=== PATIENT | male | born 1975 | race Caucasian/White ===

== ENCOUNTER 2020-03-29 17:15 | Inpatient (IN) | payer MEDICARE, MEDICAID, SELFPAY ==
[2020-03-29 17:17] VITALS: PULSE 47; RESP 17; O2SAT 100; BMI 20.7
--- NOTE | 2020-03-29 17:49 | ECG_ITS ---
Test Reason : BRADYCARDIA Blood Pressure : / mmHG Vent. Rate : 050 BPM Atrial Rate : 050 BPM P-R Int : 214 ms QRS Dur : 122 ms QT Int : 574 ms P-R-T Axes : 070 101 028 degrees QTc Int : 523 ms Sinus bradycardia with 1st degree A-V block with Premature atrial complexes in a pattern of bigeminy Rightward axis Non-specific intra-ventricular conduction delay ST elevation, consider early repolarization, pericarditis, or injury Abnormal ECG No significant changes seen Referred By: Florencia Nielson Electronically Signed By:JACK BELL MD
--- NOTE | 2020-03-29 17:54 | ED_ITS ---
HPI - SOB/Dyspnea General Chief Complaint: Dyspnea Stated Complaint: sob Time Seen by Provider: 03/29/20 17:48 History of Present Illness HPI Narrative: Patient is a 44-year-old male with a history of end-stage renal disease currently on dialysis. Gets dialysis on Thursday last dialysis was yesday Thursday. Patient got less than usual dialysis because he has restless legs syndrome came a dialysis machine after 2 hours. Patient is complaining of increasing shortness of breath weakness generalized malaise chest tightness not feeling well questionable coughing. Patient denies any diaphoresis. Denies any abdominal pain. Just feels very malaise. Patient from home. No history of travel. No fever no chills. No other changes in medication. Related Data Home Medications Medication Instructions Recorded Confirmed hydromorphone 2 - 4 mg PO Q6H PRN 03/29/20 03/29/20 labetalol 600 mg PO BID 03/29/20 03/29/20 tramadol 150 mg PO BID PRN 03/29/20 03/29/20 Allergies Allergy/AdvReac Type Severity Reaction Status Date / Time Alupent Allergy Unknown Uncoded 04/14/17 00:00 From Alupent Allergy Unknown HALLUCINATI Uncoded 02/02/20 15:20 ONS Review of Systems Review of Systems: Constitutional: No Weight loss, No Fever, No Chills, No Night Sweats, No Fatigue, No Malaise ENT/Mouth: No Hearing loss, No Ear Pain, No Nasal Congestion, No Sinus Pain, No Hoarseness, No sore throat, No Rhinorrhea, No Swallowing Difficulty Eyes: No Eye Pain, No Swelling, No Redness, No Foreign Body, No Discharge, No Vision Changes Cardiovascular: No Chest Pain, No SOB, No Dyspnea on Exertion, No Orthopnea, No Edema, No Palpitations Respiratory: Positive Cough, No Sputum, No Wheezing, No Smoke Exposure, No Dyspnea Gastrointestinal: No Nausea, No Vomiting, No Diarrhea, No Constipation, No abdominal Pain, No Hematochezia, No Melena Genitourinary: no irregular bleeding, No Dysuria, No Urinary Frequency, No Hematuria, No Urinary Incontinence, No Urgency, No Flank Pain, No Urinary Flow Changes, No Hesitancy Musculoskeletal: No joint pain, No Myalgias, No Joint Swelling Skin: No Skin Lesions, No rash Neuro: No Weakness, No Numbness, No Paresthesias, No Loss of Consciousness, positive Dizziness, No Headache Psych: No Anxiety/Panic, No Depression, No SI/HI/AH/VH, No Social Issues, Heme/Lymph: No Bruising, No Bleeding,No Lymphadenopathy Endocrine: No Polyuria, No Polydipsia, No Temperature Intolerance [facility] Past Medical History Attestation statement: The following information was validated with the patient. Social History Social History Alcohol intake: never Smoking Status: Never smoker Use of substances other than those prescribed or required for medical reasons: No Advance Directives: No Advance Directives Information Provided: Yes Physical Exam Vital Signs: Vital Signs: Last Vital Signs Temp 97.7 F 03/29/20 19:38 Pulse 64 03/29/20 19:38 Resp 20 03/29/20 19:38 BP 156/94 H 03/29/20 19:38 Pulse Ox 90 L 03/29/20 19:38 Body Mass Index 20.7 Appearance: Alert. Oriented X3. No acute distress. Eyes: Pupils equal, round and reactive to light. ENT: Pharynx normal. Neck: Normal inspection. Neck supple. No lymph nodes noted. No crepitus CVS: Normal heart rate and rhythm. Pulses normal. Normal S1 and S2 Respiratory: No respiratory distress. Breath sounds normal. No Wheezing. No rales Abdomen: Soft and nontender. No rigidity. No distention. good BS x4 Skin: Skin warm and dry. Normal skin color. Normal skin turgor. Extremities: No lower extremity edema. Neurovascular intact to all extremities. No Lacerations. No Rash. Positive thrill noted at the shunts. Neuro: Oriented X 3. No motor deficit. No sensory deficit. Moving all extermities. No slurred speech MDM - SOB/Dyspnea MDM Narrative Medical decision making narrative: Patient has generalized malaise weakness. Chest tightness. Did not get his full dialysis yesterday. Patient's potassium today is 6.7. With significant peaked T-waves noted. Patient given calcium gluconate, insulin, glucose. Kayexalate was also given. Placed on a monitor with heart rate improving now in the 60s. Case discussed with Nephrology. Will come in and get the patient dialyzed. Case to be discussed with the hospitalist service for admission. Patient's troponin is in the 50s patient's EKG is unchanged from last check most likely elevated due to patient's end-stage renal status. Pain is atypical for ACS. Patient to be admitted Lab Data Result diagrams: 03/29/20 17:57 03/29/20 17:57 Labs: Lab Results 03/29/20 03/29/20 03/29/20 Range/Units 17:57 17:57 17:57 WBC 5.5 (4.8-10.8) X10*3/uL RBC 3.46 L (4.60-5.80) X10*6/uL Hgb 10.7 L (14.0-18.0) g/dl Hct 33.9 L (42-52) % MCV 98.0 (80-98) fL MCH 30.9 (27.0-33.0) pg MCHC 31.6 (31.0-36.0) g/dl RDW 19.0 H (11.0-16.0) % Plt Count 187 (160-400) X10*3/uL MPV 10.6 (9.4-12.4) fL Absolute Nucleated RBC 0.000 (0.0-0.012) X10*3/uL Nucleated RBC % (auto) 0.0 (0.0-0.2) /100WBC APTT 36.7 (24.1-38.0) SEC VBG pH (7.32-7.43) Sodium 137 (135-145) mmol/L Potassium 6.7 H* (3.3-5.1) mmol/l Chloride 93 L (96-108) mmol/L Carbon Dioxide 25 (22-29) mmol/L Anion Gap 26 H (12-20) BUN 85 H* (9-16) mg/dL Creatinine 6.17 H* (0.5-1.4) mg/dL Estim Creat Clear Calc 14.3 Estimated GFR 10 Random Glucose 56 L* (60-115) mg/dL Calcium 8.2 L (8.4-10.2) mg/dL Phosphorus 6.9 H (2.7-4.5) mg/dL Magnesium 2.5 (1.6-2.6) mg/dL Troponin I High Sens (<3.5-35.0) ng/L Acetone, Qual Negative (Negative) Coronavirus (PCR) (Negative) Influenza Type A (PCR) (Negative) Influenza Type B (PCR) (Negative) RSV RNA Qual (PCR) (Negative) 03/29/20 03/29/20 03/29/20 Range/Units 17:57 17:57 17:57 WBC (4.8-10.8) X10*3/uL RBC (4.60-5.80) X10*6/uL Hgb (14.0-18.0) g/dl Hct (42-52) % MCV (80-98) fL MCH (27.0-33.0) pg MCHC (31.0-36.0) g/dl RDW (11.0-16.0) % Plt Count (160-400) X10*3/uL MPV (9.4-12.4) fL Absolute Nucleated RBC (0.0-0.012) X10*3/uL Nucleated RBC % (auto) (0.0-0.2) /100WBC APTT (24.1-38.0) SEC VBG pH 7.38 (7.32-7.43) Sodium (135-145) mmol/L Potassium (3.3-5.1) mmol/l Chloride (96-108) mmol/L Carbon Dioxide (22-29) mmol/L Anion Gap (12-20) BUN (9-16) mg/dL Creatinine (0.5-1.4) mg/dL Estim Creat Clear Calc Estimated GFR Random Glucose (60-115) mg/dL Calcium (8.4-10.2) mg/dL Phosphorus (2.7-4.5) mg/dL Magnesium (1.6-2.6) mg/dL Troponin I High Sens 57.2 H (<3.5-35.0) ng/L Acetone, Qual (Negative) Coronavirus (PCR) NEGATIVE (Negative) Influenza Type A (PCR) NEGATIVE (Negative) Influenza Type B (PCR) NEGATIVE (Negative) RSV RNA Qual (PCR) NEGATIVE (Negative) ECG Data Attestation: I personally reviewed and interpreted this ECG as follows: ECG interpretation date: 03/29/20 Prior ECG tracings: not available for review Interpretation: Initial EKG showed a sinus pattern heart rate is 50 with significant T-wave that is T in V4 5 and 6. There is no old EKG that can be compared Repeat EKG done approximately 20 minutes later shows a sinus bradycardia heart rate was [address] within normal limits there is profound T-wave the P again over V4 5 and 6. Critical Care Time Critical Care Time Total Critical Care Time: 40 Attestation: I have personally provided 40 minutes of critical care time exclusive of time spent on separately billable procedures. Time includes review of lab data, radiology results, discussion with consultants, and monitoring for potential decompensation. Interventions were performed as documented above Discharge Plan Discharge Clinical Impression: Acute hyperkalemia Patient Disposition: Admitted As Inpatient
[2020-03-29] MEDS: Insulin Regular, Human 100 UNIT/ML 3 ML VIAL IVPUSH (18:02)
[2020-03-29] MEDS: Calcium Gluconate/NaCl,Iso-Osm 1 GM/50 ML PLAST..BAG IV (18:03)
[2020-03-29 18:23] LABS: pH VBG 7.38 (7.32-7.43)
--- NOTE | 2020-03-29 18:25 | XR_ITS ---
EXAMINATION: XR CHEST CLINICAL INFORMATION: Shortness of breath COMPARISON: Chest x-ray 11/02/2019. CT chest 07/09/2017 TECHNIQUE: Frontal portable view of the chest was obtained. 6:19 PM FINDINGS: There is persistent chronic mild increased hazy and interstitial airspace opacities similar prior studies. Increasing airspace opacity in the left midlung compared to prior exam but without dense consolidation or air bronchograms. There is no pleural effusion. Cardiac and mediastinal contours are unchanged. No significant central pulmonary vascular congestion. XR/XR chest 1V IMPRESSION: Persistent chronic mild increased hazy and interstitial airspace opacities similar prior studies. Worsening airspace opacity in the left midlung.
[2020-03-29 18:26] LABS: Partial Thromboplastin Time 36.7 SEC (24.1-38.0)
[2020-03-29 18:27] LABS: Hematocrit 33.9 % (42-52); Hemoglobin 10.7 g/dl (14.0-18.0); Mean Corpuscular HGB Conc 31.6 g/dl (31.0-36.0); Mean Corpuscular Hemoglobin 30.9 pg (27.0-33.0); Mean Platelet Volume 10.6 fL (9.4-12.4); Platelet Count 187 X10*3/uL (160-400); Red Blood Count 3.46 X10*6/uL (4.60-5.80); White Blood Count 5.5 X10*3/uL (4.8-10.8)
[2020-03-29 18:49] LABS: Calcium 8.2 mg/dL (8.4-10.2); Magnesium 2.5 mg/dL (1.6-2.6); Phosphorus 6.9 mg/dL (2.7-4.5)
[2020-03-29 18:50] LABS: Troponin-I High Sensitivity 57.2 ng/L (<3.5-35.0)
[2020-03-29 18:53] LABS: Influenza A PCR NEGATIVE (Negative); Influenza B PCR NEGATIVE (Negative); Resp Syncy Virus RNA Qual PCR NEGATIVE (Negative); SARS COV2 PCR INHOUSE NEGATIVE (Negative)
[2020-03-29 18:59] LABS: Anion Gap 26 (12-20); Blood Urea Nitrogen 85 mg/dL (9-16); Carbon Dioxide 25 mmol/L (22-29); Chloride 93 mmol/L (96-108); Creatinine Clr Calc Pharmacy 14.3; Estimated Glomerular Filt Rate 10; Glucose Random 56 mg/dL (60-115); Potassium 6.7 mmol/l (3.3-5.1); Sodium 137 mmol/L (135-145)
[2020-03-29 19:19] LABS: Acetone, serum QL Negative (Negative)
[2020-03-29 19:21] VITALS: BP 157/93; PULSE 64; RESP 18; TEMP 36.4; O2SAT 95
[2020-03-29 19:38] VITALS: BP 156/94; PULSE 64; RESP 20; TEMP 36.5; O2SAT 90
[2020-03-29 20:00] VITALS: BP 161/105; PULSE 65; RESP 18; TEMP 36.6; O2SAT 94
[2020-03-29 20:22] LABS: Glucose, Whole Blood < 10 mg/dL (60-115)
[2020-03-29] MEDS: Dextrose 50 % 25 GM/50 ML SYRINGE IVPUSH (20:23)
[2020-03-29 20:25] LABS: Glucose, Whole Blood 81 mg/dL (60-115)
--- NOTE | 2020-03-29 20:36 | PC.NURSE ---
THIS RN UNABLE TO COLLECT URINE SPEC PT DOES NOT PRODUCE URINE. PT'S CRITICAL GLUCOSE REPORTED FROM LAB, PT GIVEN APPLE JUICE AT TIME OF RESULTS. POC THEN CHECKED AGAIN WITH HOSPITALIST AT BEDSIDE, CRITICAL LOW <10 READING, PT AWAKE/ALERT. PT GIVEN 1 AMP D50 PER THOMAS ORDER, PT GIVEN MORE APPLE JUICE, SANDWICH, GINGERALE. IMMEDIATE RECEHCK OF POC 86, PENDING 2ND REPEAT AT 20 MIN.
[2020-03-29 20:49] LABS: Glucose, Whole Blood 71 mg/dL (60-115)
--- NOTE | 2020-03-29 21:09 | PM.IMHP ---
History of Present Illness Date of Service: 03/29/20 Chief Complaint: Not feeling well this is a 44-year-old male with past medical history of end-stage renal disease on dialysis MWF, restless leg syndrome, hypertension, CAD, status post failed renal transplant, anemia of chronic disease who presents to the hospital with complaints of generalized weakness,dizziness, malaise, overall not feeling well. patient had dialysis yesterday but only did about 2 hours due to his restless leg syndrome. He comes in today complaining of feeling unwell, and generalized malaise. When I saw the patient, he was waxing and waning, was not able to stay up for extended period of time to answer my questions. He told me that he usually gets like this when he is hypoglycemic. On review of his labs, sugar was noted to be 56, a repeat sugar was done while I was there, which read low . patient was given juice, D50, and is feeling better. He denies having any CP, SOB, N/V. no diarrhea constipation. No urinary symptoms and no lower extremity edema. No headache or change in vision. on arrival to the ED hemodynamically stable with no significant abnormal vitals except for a blood pressure of 156/94. labs are significant for potassium 617, BUN of 85, creatinine of 6.17, troponin of 5-7.2 ( drawn around the same level in January) negative COVID EKG demonstrating peaked T-wave past medical history: ESRD on dialysis, restless leg syndrome, hypertension, CAD, history of renal transplant, anemia of chronic past surgical history: Denies family history: Denies social history: Comes from home, denies tobacco alcohol or illicit drugs [facility] Medical History (Updated 03/29/20 @ 21:56 by Samanta Ray MD) CAD (coronary artery disease) ESRD on dialysis Hypertension Social History Alcohol intake: never Smoking Status: Never smoker Use of substances other than those prescribed or required for medical reasons: No Advance Directives: No Advance Directives Information Provided: Yes Meds Allergies Allergy/AdvReac Type Severity Reaction Status Date / Time Alupent Allergy Unknown Uncoded 04/14/17 00:00 From Alupent Allergy Unknown HALLUCINATI Uncoded 02/02/20 15:20 ONS Home Medications Medication Instructions Recorded Confirmed Type hydromorphone 2 - 4 mg PO Q6H PRN 03/29/20 03/29/20 History labetalol 600 mg PO BID 03/29/20 03/29/20 History tramadol 150 mg PO BID PRN 03/29/20 03/29/20 History Physical Exam Vital Signs and Narrative: Vital Signs: Last Vital Signs Temp 97.7 F 03/29/20 19:38 Pulse 64 03/29/20 19:38 Resp 20 03/29/20 19:38 BP 156/94 H 03/29/20 19:38 Pulse Ox 90 L 03/29/20 19:38 Body Mass Index 20.7 Const: Other: Initially lethargic, waxing and waning, unable to stay up long enough to answer my questions but more awake, alert, conversing after receiving D50, as well as being on D5 General: cooperative Orientation/consciousness: patient oriented x3 Eyes: General: appearance normal, both eyes and all related structures Pupils: Equal, round and reactive pupils present Resp: Effort & Inspection: normal respiratory effort Auscultation: clear to auscultation bilaterally Cardio: Rate: regular rate Rhythm: regular rhythm GI: Palpation (GI): Soft to palpation Auscultation: normal bowel sounds Skin: General skin exam: no rashes or lesions noted Neuro: General: patient oriented x3 Cranial nerves: Yes Equal, round and reactive pupils present Cognition (Neuro): normal cognition Extrem: General: Yes normal to inspection and Yes no pedal edema Results Labs CBC and Chem 7: 03/29/20 17:57 03/29/20 17:57 Labs: Laboratory Results - last 24 hr 03/29/20 03/29/20 03/29/20 17:57 17:57 17:57 MCV 98.0 MCH 30.9 MCHC 31.6 RDW 19.0 H Plt Count 187 MPV 10.6 Absolute Nucleated RBC 0.000 Nucleated RBC % (auto) 0.0 APTT 36.7 VBG pH Anion Gap 26 H Estim Creat Clear Calc 14.3 Estimated GFR 10 POC Glucose Random Glucose 56 L* Calcium 8.2 L Phosphorus 6.9 H Magnesium 2.5 Troponin I High Sens Acetone, Qual Negative Coronavirus (PCR) Influenza Type A (PCR) Influenza Type B (PCR) RSV RNA Qual (PCR) 03/29/20 03/29/20 03/29/20 17:57 17:57 17:57 MCV MCH MCHC RDW Plt Count MPV Absolute Nucleated RBC Nucleated RBC % (auto) APTT VBG pH 7.38 Anion Gap Estim Creat Clear Calc Estimated GFR POC Glucose Random Glucose Calcium Phosphorus Magnesium Troponin I High Sens 57.2 H Acetone, Qual Coronavirus (PCR) NEGATIVE Influenza Type A (PCR) NEGATIVE Influenza Type B (PCR) NEGATIVE RSV RNA Qual (PCR) NEGATIVE 03/29/20 03/29/20 03/29/20 20:15 20:22 20:43 MCV MCH MCHC RDW Plt Count MPV Absolute Nucleated RBC Nucleated RBC % (auto) APTT VBG pH Anion Gap Estim Creat Clear Calc Estimated GFR POC Glucose < 10 L* 81 71 Random Glucose Calcium Phosphorus Magnesium Troponin I High Sens Acetone, Qual Coronavirus (PCR) Influenza Type A (PCR) Influenza Type B (PCR) RSV RNA Qual (PCR) Imaging Radiologist's Impressions: Impressions Chest X-Ray 03/29/20 18:25 IMPRESSION: Persistent chronic mild increased hazy and interstitial airspace opacities similar prior studies. Worsening airspace opacity in the left midlung. Assessment and Plan (1) Acute hyperkalemia: Status: Acute (2) Hypoglycemia: Status: Acute (3) ESRD on dialysis: Status: Acute (4) Hypertension: Status: Acute (5) CAD (coronary artery disease): Status: Acute This is a 44-year-old male with past medical history of ESRD on dialysis who presents to the hospital with multiple in complaints of about found to be hypokalemic, and has elevated troponin. # hyperkalemia - most likely secondary to incomplete dialysis - has EKG changes of peaked T-waves with heart rate dropping to the 40s at 1 point in the ED Plan: - Received calcium gluconate, insulin, and Kayexalate in the ED - will be undergoing dialysis tonight - will follow BMP following dialysis # hypoglycemia - unclear etiology - patient has no history of diabetes, but repeats multiple episodes similar to this in the past plan: - Will place on D50 - POC q.1 hour - may need workup of adrenal insufficiency given no other etiology for his hypoglycemia # elevated troponin - initial high sensitivity troponin of 56, around the same level from about 2 months ago - this may be secondary to ESRD versus acute coronary syndrome given his history of coronary artery disease - no EKGs changes suggestive of ACS Plan: - Will repeat troponin, if delta more than 50%, will consult Cardiology and follow recommendation - continue labetalol # hypertension - elevated - continue labetalol # coronary artery disease - has chest pain, has chronic elevated troponin plan: - Continue labetalol - repeat troponin # chronic back pain - continue hydromorphone DVT prophylaxis: Heparin subcu
[2020-03-29] MEDS: Dextrose 5 % and 0.9 % NaCl 1,000 ML 100 ML IVCONT (21:17)
[2020-03-29] MEDS: Sodium Polystyrene Sulfon/Sorb 15 GM/60 ML ORAL.SUSP 60 GM PO (21:18)
[2020-03-29 22:00] VITALS: BP 142/85; PULSE 57; RESP 18; TEMP 36.6; O2SAT 95
[2020-03-29 22:21] LABS: Glucose, Whole Blood 132 mg/dL (60-115)
[2020-03-29] MEDS: diphenhydrAMINE HCL 50 MG/ML VIAL 12.5 MG IVPUSH (23:08)
[2020-03-29 23:11] LABS: Anion Gap 27 (12-20); Blood Urea Nitrogen 95 mg/dL (9-16); Calcium 8.7 mg/dL (8.4-10.2); Carbon Dioxide 24 mmol/L (22-29); Chloride 90 mmol/L (96-108); Estimated Glomerular Filt Rate 9; Glucose Random 137 mg/dL (60-115); Potassium 6.2 mmol/l (3.3-5.1); Sodium 135 mmol/L (135-145)
[2020-03-29 23:12] LABS: Troponin-I High Sensitivity 48.3 ng/L (<3.5-35.0)
[2020-03-29] MEDS: 0.9 % Sodium Chloride Flush 3 ML SYRINGE IVFLUSH (23:19)
[2020-03-29 23:41] LABS: Glucose, Whole Blood 98 mg/dL (60-115)
[2020-03-30] VITALS (7 sets, daily range): BP systolic 179–189; BP diastolic 83–105; PULSE 65–68; RESP 18; TEMP 36.4–36.6; O2SAT 97–99
--- NOTE | 2020-03-30 | CT_ITS ---
EXAMINATION: CT CHEST WITHOUT CONTRAST CLINICAL INFORMATION: Interstitial infiltrates. COMPARISON: Radiograph 03/29/2020. CT 07/09/2017. TECHNIQUE: Multidetector volumetric CT imaging of the chest was done. Axial MIP volume rendering provided. Sagittal and coronal reformatted images were obtained. This CT examination was performed using dose optimization techniques as appropriate, variously including the following: *Automated exposure control *Adjustment of mA and/or kV according to patient size (this includes techniques or standardized protocols for targeted exams where dose is matched to indication/reason for exam; i.e. extremities or head) *Use of iterative reconstruction technique DLP: 125 mGy-cm FINDINGS: LUNGS: The central airways are patent. There is moderate centrilobular emphysema, greatest in the upper lobes. There is heterogeneous groundglass appearance throughout the lungs, similar to prior. Mild bronchiectasis with bronchial wall thickening noted. There is interstitial thickening seen, greatest in the lower lobes. This is similar to prior. No honeycombing. No dense consolidation. No pneumothorax. Chain suture line along the left lateral lung. MEDIASTINUM: Enlarged heart. No pericardial effusion. Moderate coronary artery calcification. No mediastinal lymphadenopathy. The visualized thyroid gland is unremarkable. PLEURA: There is no pleural effusion. No pleural mass or thickening. AXILLA: No lymphadenopathy. UPPER ABDOMEN: Mild stranding in the upper abdominal mesentery. The [place] kidneys appear atrophic. The liver may be enlarged. OSSEOUS STRUCTURES: No acute or suspicious osseous abnormality. CT/CT chest wo con IMPRESSION: Moderate emphysema. Appearance of chronic interstitial lung disease which is similar to the prior study from 07/09/2017. No honeycombing to suggest UIP pattern. Coronary artery calcifications. Enlarged heart.
--- NOTE | 2020-03-30 | ECG_ITS ---
Test Reason : CHEST PAIN Blood Pressure : / mmHG Vent. Rate : 065 BPM Atrial Rate : 065 BPM P-R Int : 198 ms QRS Dur : 118 ms QT Int : 498 ms P-R-T Axes : 038 088 026 degrees QTc Int : 517 ms Normal sinus rhythm RSR' or QR pattern in V1 suggests right ventricular conduction delay Incomplete right bundle branch block Left atrial enlargement Left ventricular hypertrophy with QRS widening Nonspecific ST abnormality Prolonged QT Abnormal ECG When compared with ECG of 29-MAR-2020 18:05, NC interval has decreased Vent. rate has increased BY 27 BPM Right bundle branch block is no longer Present ST more depressed Inferior leads Referred By: Florencia Nielson Electronically Signed By:JACK BELL MD
[2020-03-30 01:04] LABS: Glucose, Whole Blood 86 mg/dL (60-115)
[2020-03-30] MEDS: traMADoL HCL 50 MG TABLET 150 MG PO ×2 (01:33→09:24)
[2020-03-30] MEDS: HYDROmorphone HCl 2 MG TABLET PO (01:33)
[2020-03-30] MEDS: Heparin Sodium,Porcine 5,000 UNIT/ML VIAL 5000 UNIT SUBCUT ×2 (02:02→09:26)
[2020-03-30] MEDS: Labetalol HCL 200 MG TABLET 600 MG PO ×2 (02:03→09:24)
[2020-03-30 02:35] LABS: Glucose, Whole Blood 103 mg/dL (60-115)
[2020-03-30 03:40] LABS: Glucose, Whole Blood 124 mg/dL (60-115)
[2020-03-30 05:15] LABS: MANUAL DIFF FLAG NO
[2020-03-30 05:17] LABS: Basophils Percent Auto 0.5 % (0-2); Eosinophils Percent Auto 0.5 % (0-4); Hematocrit 34.6 % (42-52); Hemoglobin 11.1 g/dl (14.0-18.0); Imm Gran Abs Auto 0.01 X10*3/uL (0.00-0.03); Imm Gran Pct Auto 0.2 % (0.0-0.4); Lymphocytes Percent Auto 17.7 % (20-40); Mean Corpuscular HGB Conc 32.1 g/dl (31.0-36.0); Mean Corpuscular Hemoglobin 31.4 pg (27.0-33.0); Mean Platelet Volume 10.9 fL (9.4-12.4); Monocytes Absolute Auto 0.5 X10*3/uL (0.1-1.2); Monocytes Percent Auto 8.9 % (2-11); Neutrophils Percent Auto 72.2 % (45-73); Platelet Count 212 X10*3/uL (160-400); Red Blood Count 3.53 X10*6/uL (4.60-5.80); Red Cell Distribution Width 18.6 % (11.0-16.0); White Blood Count 5.6 X10*3/uL (4.8-10.8)
[2020-03-30 05:55] LABS: Anion Gap 24 (12-20); Blood Urea Nitrogen 47 mg/dL (9-16); Calcium 8.9 mg/dL (8.4-10.2); Carbon Dioxide 22 mmol/L (22-29); Chloride 95 mmol/L (96-108); Estimated Glomerular Filt Rate 15; Glucose Random 117 mg/dL (60-115); Potassium 4.5 mmol/l (3.3-5.1); Sodium 136 mmol/L (135-145)
[2020-03-30 06:28] LABS: Glucose, Whole Blood 99 mg/dL (60-115)
[2020-03-30 06:28] LABS: Glucose, Whole Blood 123 mg/dL (60-115)
[2020-03-30 06:28] LABS: Glucose, Whole Blood 93 mg/dL (60-115)
[2020-03-30 07:50] LABS: Glucose, Whole Blood 101 mg/dL (60-115)
--- NOTE | 2020-03-30 09:09 | PM.CNNEP ---
History of Present Illness Reason for Consult Consult date: 03/30/20 Reason for consult: ESRD due for HD Chief Complaint Chief complaint: Hyperkalemia, Dialysis pt, Hypoglycemia History of Present Illness Narrative: Date of Service: 03/30/20 Chief Complaint: Not feeling well this is a 44-year-old male with past medical history of end-stage renal disease on dialysis MWF, restless leg syndrome, hypertension, CAD, status post failed renal transplant, anemia of chronic disease who presents to the hospital with complaints of generalized weakness,dizziness, malaise, overall not feeling well. patient had dialysis yesterday but only did about 2 hours due to his restless leg syndrome. He comes in today complaining of feeling unwell, and generalized malaise. When I saw the patient, he was waxing and waning, was not able to stay up for extended period of time to answer my questions. He told me that he usually gets like this when he is hypoglycemic. On review of his labs, sugar was noted to be 56, a repeat sugar was done while I was there, which read low . patient was given juice, D50, and is feeling better. He denies having any CP, SOB, N/V. no diarrhea constipation. No urinary symptoms and no lower extremity edema. No headache or change in vision. on arrival to the ED hemodynamically stable with no significant abnormal vitals except for a blood pressure of 156/94. labs are significant for potassium 6.7, BUN of 85, creatinine of 6.17, troponin of 5-7.2 ( drawn around the same level in January) negative COVID EKG demonstrating peaked T-wave Patient received urgent HD for hyperkalemia had 2.5 l fluid removed, due for HD today. past medical history: ESRD on dialysis, restless leg syndrome, hypertension, CAD, history of renal transplant, anemia of chronic past surgical history: Denies family history: Denies social history: Comes from home, denies tobacco alcohol or illicit drugs [facility] Medical History (Updated 03/29/20 @ 21:56 by Samanta Ray MD) CAD (coronary artery disease) ESRD on dialysis Hypertension Social History Alcohol intake: never Smoking Status: Never smoker Use of substances other than those prescribed or required for medical reasons: No Advance Directives: No Advance Directives Information Provided: Yes Review of Systems Review of Systems Yes all other systems are reviewed and are negative [facility] Past Medical History Medical History CAD (coronary artery disease) ESRD on dialysis Hypertension Social History Social History Household Members: Family Housing: House Do you presently have visiting nurse or other home services: No Alcohol intake: never Smoking Status: Never smoker Use of substances other than those prescribed or required for medical reasons: No Have you been hit, kicked, punched, or otherwise hurt by someone within the past year? If so, by whom?: No Do you feel safe in your current relationship?: Yes Is there a partner from a previous relationship who is making you feel unsafe now?: No Are you made to feel afraid or neglected: No Advance Directives: No Advance Directives Information Provided: Yes Do you have thoughts of harming others: None Do you have a plan to hurt others: No Plan Recently lost weight without trying: No Meds Allergies Allergy/AdvReac Type Severity Reaction Status Date / Time Alupent Allergy Unknown Uncoded 04/14/17 00:00 From Alupent Allergy Unknown HALLUCINATI Uncoded 02/02/20 15:20 ONS Home Medications Medication Instructions Recorded Confirmed Type hydromorphone 2 - 4 mg PO Q6H PRN 03/29/20 03/29/20 History labetalol 600 mg PO BID 03/29/20 03/29/20 History tramadol 150 mg PO BID PRN 03/29/20 03/29/20 History Physical Exam Vital Signs: Last Vital Signs Temp 97.7 F 03/30/20 07:29 Pulse 67 03/30/20 07:29 Resp 18 03/30/20 07:29 BP 180/93 H 03/30/20 07:29 Pulse Ox 97 03/30/20 07:29 Body Mass Index 20.7 oral moist mucosa lungs clear s1s2 no CELESTE abd soft +BSs ext trace edema LUE +AVF neuro no focal deficit Results Lab Results Result Diagrams: 03/30/20 04:40 03/30/20 05:00 Lab results: Chemistry 03/29/20 03/29/20 03/30/20 17:57 22:26 05:00 Sodium 137 135 136 Potassium 6.7 H* 6.2 H* 4.5 D Carbon Dioxide 25 24 22 BUN 85 H* 95 H* 47 H D Creatinine 6.17 H* 6.79 H* 4.43 H* Calcium 8.2 L 8.7 D 8.9 Phosphorus 6.9 H Hematology 03/29/20 03/30/20 17:57 04:40 WBC 5.5 5.6 Hgb 10.7 L 11.1 L Plt Count 187 212 Assessment and Plan (1) ESRD on dialysis: Problem details: continue HD via AVF today MWF Status: Acute (2) Hypoglycemia: Problem details: being closely monitored. addressed meds with primary medicine team. Status: Acute (3) Hypertension: Problem details: resume outpt meds, continue HD with ultrafiltration/fluid removal. Status: Acute (4) Acute hyperkalemia: Problem details: controlled. Status: Acute plan as above, pt having CT scan today as part of workup, will follow results HD today if Glucose levels stable and HTN controlled can consider DC home, next HD next week thursday. Procedures Abscess I/D Date of Service: 03/30/20
[2020-03-30] MEDS: 0.9 % Sodium Chloride Flush 3 ML SYRINGE IVFLUSH (09:26)
[2020-03-30] MEDS: diphenhydrAMINE HCL 50 MG/ML VIAL 25 MG IVPUSH (09:36)
--- NOTE | 2020-03-30 09:48 | MHC.CM.PN ---
met with pt who reports not having servceis prior to admisison pt confirms going to dialysis thu and luz [facility]
[2020-03-30 10:09] LABS: Anion Gap 22 (12-20); Blood Urea Nitrogen 50 mg/dL (9-16); Calcium 9.2 mg/dL (8.4-10.2); Carbon Dioxide 26 mmol/L (22-29); Chloride 95 mmol/L (96-108); Creatinine Clr Calc Pharmacy 18.2; Estimated Glomerular Filt Rate 13; Glucose Random 87 mg/dL (60-115); Potassium 4.5 mmol/l (3.3-5.1); Sodium 138 mmol/L (135-145)
[2020-03-30 10:11] LABS: Alanine Aminotransferase 27 U/L (0-40); Albumin Level 3.9 g/dL (3.5-5.0); Alkaline Phosphatase 272 U/L (39-117); Aspartate Amino Transferase 33 U/L (5-37); Bilirubin Direct 0.5 mg/dL (0.0-0.5); Bilirubin Total 0.8 mg/dL (0.0-1.0); Total Protein 7.9 g/dL (6.5-8.0)
[2020-03-30 10:31] LABS: TSH reflex Free T4 2.68 mIU/mL (0.32-4.0)
[2020-03-30 10:34] LABS: Procalcitonin 2.82 ng/mL
[2020-03-30 11:23] LABS: Glucose, Whole Blood 74 mg/dL (60-115)
--- NOTE | 2020-03-30 13:33 | HO.PM.IMPN ---
Subjective Subjective Date of Service: 03/30/20 Interval History: underwent HD last night and going again today c/o restless legs. has tried multiple treatments in past including gabapentin + ropinirole; only med that helpds is tramadol undergoing workup for repeat renal transplant denies taking any insulin or oral hypoglycemia has had 1 prior episode of hypoglycemia. both were triggered by not eating for 2 days denies cough or dyspnea denies fever or chills Physical Exam Vital Signs: Vital Signs: Last Vital Signs Temp 97.7 F 03/30/20 07:29 Pulse 67 03/30/20 09:24 Resp 18 03/30/20 07:29 BP 186/105 H 03/30/20 11:08 Pulse Ox 97 03/30/20 07:29 Body Mass Index 20.7 gen: NAD HEENT: sclerae anicteric, moist mucus membranes pulm: clear bilaterally CV: RRR ext: LUE fistula neuro: no focal deficit Objective Data Current Medications Generic Name Dose Route Start Last Admin Trade Name Freq PRN Reason Stop Dose Admin Acetaminophen 650 mg 03/29/20 22:22 Acetaminophen 325 Mg Tablet PO Q6H PRN Pain, Mild (Pain Scale 1-3) Diphenhydramine HCl 12.5 mg 03/29/20 22:36 03/29/20 23:08 Diphenhydramine Hcl 50 Mg/Ml Vial IVPUSH 12.5 mg Q6H PRN Administration Itching Docusate Sodium 100 mg 03/29/20 22:22 Docusate Sodium 100 Mg Capsule PO DAILY PRN Constipation Heparin Sodium (Porcine) 5,000 unit 03/29/20 22:00 03/30/20 09:26 Heparin Sodium,Porcine 5,000 Unit/Ml Vial SUBCUT 5,000 unit Q12H RADHA Administration Hydromorphone HCl 2 - 4 mg 03/29/20 22:22 03/30/20 01:33 Hydromorphone Hcl 2 Mg Tablet PO 2 mg Q6H PRN Administration Pain, Severe Dextrose/Sodium Chloride 1,000 mls @ 100 mls/hr 03/29/20 21:00 03/30/20 09:35 D5ns IVCONT Not Given .Q10H RADHA Labetalol HCl 600 mg 03/29/20 22:22 03/30/20 09:24 Labetalol Hcl 200 Mg Tablet PO 600 mg BID RADHA Administration Protocol Ondansetron HCl 4 mg 03/29/20 22:22 Ondansetron Hcl 4 Mg/2 Ml Vial IVPUSH Q8H PRN Nausea and Vomiting Pharmacy Consult 1 each 03/29/20 19:28 Consult Rx Perform Med Rec MISCELLANE ONCE PRN Consult order Sodium Chloride 3 ml 03/30/20 00:00 03/30/20 09:26 0.9 % Sodium Chloride Flush 3 Ml Syringe IVFLUSH 3 ml QSHIFT RADHA Administration Tramadol HCl 150 mg 03/29/20 22:22 03/30/20 09:24 Tramadol Hcl 50 Mg Tablet PO 150 mg BID PRN Administration Pain, Moderate Labs CBC & Chem 7: 03/30/20 04:40 03/30/20 09:05 Assessment and Plan (1) Hypoglycemia: Problem details: being closely monitored. addressed meds with primary medicine team. Status: Acute (2) Acute hyperkalemia: Problem details: controlled. Status: Acute (3) Hypertension: Problem details: resume outpt meds, continue HD with ultrafiltration/fluid removal. Status: Acute (4) ESRD on dialysis: Problem details: continue HD via AVF today MWF Status: Acute Assessment and Plan: hospital d#2 44yo M with ESRD on HD s/p failed renal transplant, anemia of CKD, RLS, HTN, CAD admitted for hyperkalemia due to incomplete HD session, hypoglycemia # hyperkalemia, acute, with peaked T waves - resolved s/p insulin + SPS + HD, also got Ca gluconate # hypoglycemia - suspect due to poor oral in # HTN urgency - continue labetalol # metabolic encephalopathy - resolved s/p correction of hypoglycemia # troponin-I elevation - flat and no symptoms, due to ESRD # PCT elevation - likely due to ESRD as there is no evidence of acute lower respiratory tract infection # RLS - continue tramadol prn # chronic pain - continue hydromorphone prn # VTE ppx - UFH # dispo - home once hypoglycemia fully resolved
[2020-03-30 14:35] LABS: Glucose, Whole Blood 118 mg/dL (60-115)
--- NOTE | 2020-03-30 16:17 | P.DS_ITS ---
DS: Providers Provider Date of admission: 03/29/20 21:01 Primary care physician: Kasia Frey Consults: Jax Osuna, Nephrology DS: Diagnosis Discharge Diagnosis (1) Hypoglycemia: Status: Acute (2) Acute hyperkalemia: Status: Acute (3) ESRD on dialysis: Status: Acute (4) Left against medical advice: Status: Acute (5) Hypertensive urgency: Status: Acute DS: Medications Discharge Medications Home Medications: Home Medications Medication Instructions Recorded Confirmed hydromorphone 2 - 4 mg PO Q6H PRN 03/29/20 03/29/20 labetalol 600 mg PO BID 03/29/20 03/29/20 tramadol 150 mg PO BID PRN 03/29/20 03/29/20 Previous Rx's Medication Instructions Recorded nifedipine 30 mg PO DAILY #30 tab 03/30/20 DS: Summary Hospital Course Hospital Course: from admission history and physical by hospitalist aSmanta Ray, 03/29/20: this is a 44-year-old male with past medical history of end-stage renal disease on dialysis MWF, restless leg syndrome, hypertension, CAD, status post failed renal transplant, anemia of chronic disease who presents to the hospital with complaints of generalized weakness,dizziness, malaise, overall not feeling well. patient had dialysis yesterday but only did about 2 hours due to his restless leg syndrome. He comes in today complaining of feeling unwell, and generalized malaise. When I saw the patient, he was waxing and waning, was not able to stay up for extended period of time to answer my questions. He told me that he usually gets like this when he is hypoglycemic. On review of his labs, sugar was noted to be 56, a repeat sugar was done while I was there, which read low . patient was given juice, D50, and is feeling better. He denies having any CP, SOB, N/V. no diarrhea constipation. No urinary symptoms and no lower extremity edema. No headache or change in vision. on arrival to the ED hemodynamically stable with no significant abnormal vitals except for a blood pressure of 156/94. labs are significant for potassium 617, BUN of 85, creatinine of 6.17, troponin of 5-7.2 ( drawn around the same level in January) negative COVID EKG demonstrating peaked T-wave The patient underwent urgent hemodialysis and was admitted to the [facility] [place]. Hyperkalemia resolved with insulin, SPS, and dialysis; he also received calcium gluconate. He got routine hemodialysis on 03/30/20. Hypoglycemia workup was initiated, as this is his 2nd episode of critical hypoglycemia, though suspicion is that this is due to poor oral intake rather than a more insidious cause. His mental status improved with correction of the hypoglycemia and he was at baseline by 03/30/20. We also planned to start nifedipine to add to labetalol for better control of his hypertensive urgency. Troponin remained flat and in the absence of anginal symptoms, was attributed to ESRD. His procalcitonin was elevated but there were no signs of active lower respiratory tract infection. Unfortunately, he elected to sign out against medical advice despite counseling on the risks of recurrent hypoglycemia. His BG upon discharge was 116. Nifedipine prescription was sent to his pharmacy. Physical Exam Vital Signs: Vital Signs: Last Vital Signs Temp 97.6 F 03/30/20 15: Pulse 68 03/30/20 15:20 Resp 18 03/30/20 15:20 BP 179/83 H 03/30/20 15:20 Pulse Ox 97 03/30/20 15:20 Body Mass Index 20.7 gen: NAD HEENT: sclerae anicteric, moist mucus membranes pulm: clear bilaterally CV: RRR ext: LUE fistula neuro: no focal deficit DS: Data Data Completed and Pending Labs on day of discharge: Laboratory Tests 03/29/20 03/29/20 03/29/20 17:57 17:57 17:57 WBC 5.5 RBC 3.46 L Hgb 10.7 L Hct 33.9 L MCV 98.0 MCH 30.9 MCHC 31.6 RDW 19.0 H Plt Count 187 MPV 10.6 Immature Gran % (Auto) Neut % (Auto) Lymph % (Auto) [place] % (Auto) Eos % (Auto) Baso % (Auto) Lymph # (Auto) [place] # (Auto) Eos # (Auto) Baso # (Auto) Abs Immat Gran (auto) Absolute Neuts (auto) Absolute Nucleated RBC 0.000 Nucleated RBC % (auto) 0.0 APTT 36.7 VBG pH Sodium 137 Potassium 6.7 H* Chloride 93 L Carbon Dioxide 25 Anion Gap 26 H BUN 85 H* Creatinine 6.17 H* Estim Creat Clear Calc 14.3 Estimated GFR 10 POC Glucose Random Glucose 56 L* Calcium 8.2 L Phosphorus 6.9 H Magnesium 2.5 Total Bilirubin Direct Bilirubin AST ALT Alkaline Phosphatase Troponin I High Sens Total Protein Albumin Procalcitonin TSH Acetone, Qual Negative Coronavirus (PCR) Influenza Type A (PCR) Influenza Type B (PCR) RSV RNA Qual (PCR) 03/29/20 03/29/20 03/29/20 17:57 17:57 17:57 WBC RBC Hgb Hct MCV MCH MCHC RDW Plt Count MPV Immature Gran % (Auto) Neut % (Auto) Lymph % (Auto) [place] % (Auto) Eos % (Auto) Baso % (Auto) Lymph # (Auto) [place] # (Auto) Eos # (Auto) Baso # (Auto) Abs Immat Gran (auto) Absolute Neuts (auto) Absolute Nucleated RBC Nucleated RBC % (auto) APTT VBG pH 7.38 Sodium Potassium Chloride Carbon Dioxide Anion Gap BUN Creatinine Estim Creat Clear Calc Estimated GFR POC Glucose Random Glucose Calcium Phosphorus Magnesium Total Bilirubin Direct Bilirubin AST ALT Alkaline Phosphatase Troponin I High Sens 57.2 H Total Protein Albumin Procalcitonin TSH Acetone, Qual Coronavirus (PCR) NEGATIVE Influenza Type A (PCR) NEGATIVE Influenza Type B (PCR) NEGATIVE RSV RNA Qual (PCR) NEGATIVE 03/29/20 03/29/20 03/29/20 20:15 20:22 20:43 WBC RBC Hgb Hct MCV MCH MCHC RDW Plt Count MPV Immature Gran % (Auto) Neut % (Auto) Lymph % (Auto) [place] % (Auto) Eos % (Auto) Baso % (Auto) Lymph # (Auto) [place] # (Auto) Eos # (Auto) Baso # (Auto) Abs Immat Gran (auto) Absolute Neuts (auto) Absolute Nucleated RBC Nucleated RBC % (auto) APTT VBG pH Sodium Potassium Chloride Carbon Dioxide Anion Gap BUN Creatinine Estim Creat Clear Calc Estimated GFR POC Glucose < 10 L* 81 71 Random Glucose Calcium Phosphorus Magnesium Total Bilirubin Direct Bilirubin AST ALT Alkaline Phosphatase Troponin I High Sens Total Protein Albumin Procalcitonin TSH Acetone, Qual Coronavirus (PCR) Influenza Type A (PCR) Influenza Type B (PCR) RSV RNA Qual (PCR) 03/29/20 03/29/20 03/29/20 22:17 22:26 22:26 WBC RBC Hgb Hct MCV MCH MCHC RDW Plt Count MPV Immature Gran % (Auto) Neut % (Auto) Lymph % (Auto) [place] % (Auto) Eos % (Auto) Baso % (Auto) Lymph # (Auto) [place] # (Auto) Eos # (Auto) Baso # (Auto) Abs Immat Gran (auto) Absolute Neuts (auto) Absolute Nucleated RBC Nucleated RBC % (auto) APTT VBG pH Sodium 135 Potassium 6.2 H* Chloride 90 L Carbon Dioxide 24 Anion Gap 27 H BUN 95 H* Creatinine 6.79 H* Estim Creat Clear Calc 13.0 Estimated GFR 9 POC Glucose 132 H Random Glucose 137 H D Calcium 8.7 D Phosphorus Magnesium Total Bilirubin Direct Bilirubin AST ALT Alkaline Phosphatase Troponin I High Sens 48.3 H Total Protein Albumin Procalcitonin TSH Acetone, Qual Coronavirus (PCR) Influenza Type A (PCR) Influenza Type B (PCR) RSV RNA Qual (PCR) 03/29/20 03/30/20 03/30/20 23:36 01:00 02:30 WBC RBC Hgb Hct MCV MCH MCHC RDW Plt Count MPV Immature Gran % (Auto) Neut % (Auto) Lymph % (Auto) [place] % (Auto) Eos % (Auto) Baso % (Auto) Lymph # (Auto) [place] # (Auto) Eos # (Auto) Baso # (Auto) Abs Immat Gran (auto) Absolute Neuts (auto) Absolute Nucleated RBC Nucleated RBC % (auto) APTT VBG pH Sodium Potassium Chloride Carbon Dioxide Anion Gap BUN Creatinine Estim Creat Clear Calc Estimated GFR POC Glucose 98 86 103 Random Glucose Calcium Phosphorus Magnesium Total Bilirubin Direct Bilirubin AST ALT Alkaline Phosphatase Troponin I High Sens Total Protein Albumin Procalcitonin TSH Acetone, Qual Coronavirus (PCR) Influenza Type A (PCR) Influenza Type B (PCR) RSV RNA Qual (PCR) 03/30/20 03/30/20 03/30/20 03:28 04:40 04:55 WBC 5.6 RBC 3.53 L Hgb 11.1 L Hct 34.6 L MCV 98.0 MCH 31.4 MCHC 32.1 RDW 18.6 H Plt Count 212 MPV 10.9 Immature Gran % (Auto) 0.2 Neut % (Auto) 72.2 Lymph % (Auto) 17.7 L [place] % (Auto) 8.9 Eos % (Auto) 0.5 Baso % (Auto) 0.5 Lymph # (Auto) 1.0 L [place] # (Auto) 0.5 Eos # (Auto) 0.0 Baso # (Auto) 0.0 Abs Immat Gran (auto) 0.01 Absolute Neuts (auto) 4.0 Absolute Nucleated RBC 0.000 Nucleated RBC % (auto) 0.0 APTT VBG pH Sodium Potassium Chloride Carbon Dioxide Anion Gap BUN Creatinine Estim Creat Clear Calc Estimated GFR POC Glucose 124 H 123 H Random Glucose Calcium Phosphorus Magnesium Total Bilirubin Direct Bilirubin AST ALT Alkaline Phosphatase Troponin I High Sens Total Protein Albumin Procalcitonin TSH Acetone, Qual Coronavirus (PCR) Influenza Type A (PCR) Influenza Type B (PCR) RSV RNA Qual (PCR) 03/30/20 03/30/20 03/30/20 05:00 05:55 06:24 WBC RBC Hgb Hct MCV MCH MCHC RDW Plt Count MPV Immature Gran % (Auto) Neut % (Auto) Lymph % (Auto) [place] % (Auto) Eos % (Auto) Baso % (Auto) Lymph # (Auto) [place] # (Auto) Eos # (Auto) Baso # (Auto) Abs Immat Gran (auto) Absolute Neuts (auto) Absolute Nucleated RBC Nucleated RBC % (auto) APTT VBG pH Sodium 136 Potassium 4.5 D Chloride 95 L Carbon Dioxide 22 Anion Gap 24 H BUN 47 H D Creatinine 4.43 H* Estim Creat Clear Calc 20.0 Estimated GFR 15 POC Glucose 93 99 Random Glucose 117 H Calcium 8.9 Phosphorus Magnesium Total Bilirubin Direct Bilirubin AST ALT Alkaline Phosphatase Troponin I High Sens Total Protein Albumin Procalcitonin TSH Acetone, Qual Coronavirus (PCR) Influenza Type A (PCR) Influenza Type B (PCR) RSV RNA Qual (PCR) 03/30/20 03/30/20 03/30/20 07:20 09:05 09:05 WBC RBC Hgb Hct MCV MCH MCHC RDW Plt Count MPV Immature Gran % (Auto) Neut % (Auto) Lymph % (Auto) [place] % (Auto) Eos % (Auto) Baso % (Auto) Lymph # (Auto) [place] # (Auto) Eos # (Auto) Baso # (Auto) Abs Immat Gran (auto) Absolute Neuts (auto) Absolute Nucleated RBC Nucleated RBC % (auto) APTT VBG pH Sodium 138 Potassium 4.5 Chloride 95 L Carbon Dioxide 26 Anion Gap 22 H BUN 50 H Creatinine 4.86 H* Estim Creat Clear Calc 18.2 Estimated GFR 13 POC Glucose 101 Random Glucose 87 Calcium 9.2 Phosphorus Magnesium Total Bilirubin 0.8 Direct Bilirubin 0.5 AST 33 ALT 27 Alkaline Phosphatase 272 H Troponin I High Sens Total Protein 7.9 Albumin 3.9 Procalcitonin TSH 2.68 Acetone, Qual Coronavirus (PCR) Influenza Type A (PCR) Influenza Type B (PCR) RSV RNA Qual (PCR) 03/30/20 03/30/20 03/30/20 09:05 11:05 14:31 WBC RBC Hgb Hct MCV MCH MCHC RDW Plt Count MPV Immature Gran % (Auto) Neut % (Auto) Lymph % (Auto) [place] % (Auto) Eos % (Auto) Baso % (Auto) Lymph # (Auto) [place] # (Auto) Eos # (Auto) Baso # (Auto) Abs Immat Gran (auto) Absolute Neuts (auto) Absolute Nucleated RBC Nucleated RBC % (auto) APTT VBG pH Sodium Potassium Chloride Carbon Dioxide Anion Gap BUN Creatinine Estim Creat Clear Calc Estimated GFR POC Glucose 74 118 H Random Glucose Calcium Phosphorus Magnesium Total Bilirubin Direct Bilirubin AST ALT Alkaline Phosphatase Troponin I High Sens Total Protein Albumin Procalcitonin 2.82 TSH Acetone, Qual Coronavirus (PCR) Influenza Type A (PCR) Influenza Type B (PCR) RSV RNA Qual (PCR) ITS Impressions Chest X-Ray 03/29/20 18:25 IMPRESSION: Persistent chronic mild increased hazy and interstitial airspace opacities similar prior studies. Worsening airspace opacity in the left midlung. Chest CT 03/30/20 00:00 IMPRESSION: Moderate emphysema. Appearance of chronic interstitial lung disease which is similar to the prior study from 07/09/2017. No honeycombing to suggest UIP pattern. Coronary artery calcifications. Enlarged heart. Discharge Plan Discharge Anticipated Discharge Date/Time: 03/30/20 13:30 Patient Disposition: Left Against Medical Advice Referrals: Physician,Unknown [Primary Care Provider] - Discharge Medications: New nifedipine 30 mg tablet extended release 30 mg PO DAILY Qty: 30 RF: 0 Continued labetalol 200 mg tablet 600 mg PO BID RF: 0 tramadol 50 mg tablet 150 mg PO BID PRN (Reason: Pain, Moderate) RF: 0 hydromorphone 2 mg tablet 2 - 4 mg PO Q6H PRN (Reason: Pain, Severe) RF: 0 Discharge Orders: Discharge Order (Routine); Ordered 03/30/20 Ordered By: Alecia Moss Diet: other Activity on Discharge: As tolerated Patient Instructions: Hyperkalemia (DC), Chronic Hypertension (DC), End Stage Kidney Disease (DC) Care Plan Goals: resolution of hypoglycemia and hyperkalemia blood pressure control Health Concerns: hypoglycemia hyperkalemia hypertension ESRD on HD Plan of Treatment: You have signed out against medical advice. We recommend you stay in the hospital for monitoring of hypoglycemia. You are at risk of hypoglycemia leading to passing out and even . Please return to the hospital as soon as possible.
[2020-04-02 19:09] LABS: C Peptide 12.51 ng/mL (0.80-3.85)
[2020-04-02 19:12] LABS: Insulin Level Total 3.3 uIU/mL
[2020-04-05 04:21] LABS: Proinsulin 9.2 pmol/L (< OR = 18.8)
[2020-04-06 19:42] LABS: Chlorpropamide None Detected; Glimepiride None Detected; Glipizide None Detected; Glyburide None Detected; Nateglinide None Detected; Pioglitazone None Detected; Repaglinide None Detected; Rosiglitazone None Detected; Tolazamide None Detected; Tolbutamide None Detected
== END 2020-03-30 16:30 | disposition left against medical advice (07) | DRG 682 ==
LOC: HO.ED 19:28 → HO.IMC 21:24
PROVIDERS: Admitting Provider Internal Medicine; Emergency Provider Emergency Medicine Emergency Medical Services; Visit Provider Family Medicine
DX: I12.0 Hypertensive chronic kidney disease with stage 5 chronic kidney disease or end stage renal disease (principal); N18.6 End stage renal disease; E87.5 Hyperkalemia; I25.10 Atherosclerotic heart disease of native coronary artery without angina pectoris; Z20.828 Contact with and (suspected) exposure to other viral communicable diseases; G25.81 Restless legs syndrome; Z99.2 Dependence on renal dialysis; E16.2 Hypoglycemia, unspecified; G89.29 Other chronic pain; Z79.891 Long term (current) use of opiate analgesic; Z79.899 Other long term (current) drug therapy
CPT/HCPCS: 0241U; 36415; 71045; 71250; 80048; 80076; 80337; 82009; 82533; 82800; 82947; 83525; 83735; 84100; 84145; 84206; 84443; 84484; 84681; 85025; 85027; 85730; 90999; 93005; 96365; 96375; 99285; 99291; J0610; J1200

== ENCOUNTER 2020-09-14 05:44 | Emergency (ER) | payer MEDICARE, MEDICAID, SELFPAY ==
--- NOTE | ~2020-09-14 | XR_ITS ---
EXAMINATION: XR CHEST CLINICAL INFORMATION: Shortness of breath. Missed dialysis. COMPARISON: 03/29/2020 TECHNIQUE: Frontal view of the chest was obtained. FINDINGS: The cardiac silhouette is enlarged. There are central vascular congestion and mild interstitial edema. No consolidation. No sizable effusion. No pneumothorax. Vascular calcifications in keeping with end-stage renal disease. XR/XR chest 1V IMPRESSION: Enlarged cardiac silhouette, vascular congestion, and mild interstitial edema consistent with volume overload in the setting of end-stage renal disease.
[2020-09-14 05:55] VITALS: BP 106/60; BP 107/70; PULSE 18; PULSE 62; RESP 16; TEMP 36.6; O2SAT 100; O2SAT 98; BMI 20.5
--- NOTE | 2020-09-14 06:13 | ECG_ITS ---
Test Reason : SHORTNESS OF BREATH Blood Pressure : / mmHG Vent. Rate : 062 BPM Atrial Rate : 062 BPM P-R Int : 196 ms QRS Dur : 122 ms QT Int : 492 ms P-R-T Axes : 047 098 039 degrees QTc Int : 499 ms Normal sinus rhythm Rightward axis Non-specific intra-ventricular conduction delay Borderline ECG When compared with ECG of 30-MAR-2020 15:22, No significant change was found Referred By: Ernestina Villalpando Electronically Signed By:WALKER JHAVERI MD
[2020-09-14 06:24] VITALS: RESP 15
[2020-09-14 06:39] VITALS: PULSE 59; RESP 15; O2SAT 98
[2020-09-14 06:50] LABS: MANUAL DIFF FLAG NO
--- NOTE | 2020-09-14 06:55 | ED_ITS ---
HPI - SOB/Dyspnea General Chief Complaint: Dyspnea Stated Complaint: SOB Time Seen by Provider: 09/14/20 06:09 Source: patient and EMS Mode of arrival: EMS Limitations: no limitations History of Present Illness HPI Narrative: Patient comes emergency room complaining of shortness of breath. Patient was on his way to dialysis, told the EMS crew that he feels very weak and short of breath and therefore they came here prior to arriving to the dialysis center. It was noted that patient weighs for kg above his dry weight. Patient denies chest pain, abdominal pain, nausea, vomiting or diarrhea. No fever. Related Data Home Medications Medication Instructions Recorded Confirmed hydromorphone 2 - 4 mg PO Q6H PRN 03/29/20 03/29/20 labetalol 600 mg PO BID 03/29/20 03/29/20 tramadol 150 mg PO BID PRN 03/29/20 03/29/20 Previous Rx's Medication Instructions Recorded nifedipine 30 mg PO DAILY #30 tab 03/30/20 Allergies Allergy/AdvReac Type Severity Reaction Status Date / Time Alupent Allergy Unknown Unknown Uncoded 09/14/20 06:28 From Alupent Allergy Unknown HALLUCINATI Uncoded 09/14/20 06:28 ONS Review of Systems Review of Systems: Constitutional : 4 kg of fluid weight gain in 2 days, No Fever, No Chills, No Night Sweats, complaining of fatigue and generalized weakness ENT/Mouth : No Hearing loss, No Ear Pain, No Nasal Congestion, No Sinus Pain, No Hoarseness, No sore throat, No Rhinorrhea, No Swallowing Difficulty Eyes: No Eye Pain, No Swelling, No Redness, No Foreign Body, No Discharge, No Vision Changes Cardiovascular : No Chest Pain, complaining of shortness of breath, worse with exertion Respiratory : No Cough, No Sputum, No Wheezing, complaining of dyspnea Gastrointestinal : No Nausea, No Vomiting, No Diarrhea, No Constipation, No abdominal Pain, No Hematochezia, No Melena Genitourinary : no irregular bleeding, No Dysuria, No Urinary Frequency, No Des turia, No Urinary Incontinence, No Urgency, No Flank Pain, No Urinary Flow Changes, No Hesitancy Musculoskeletal : No joint pain, No Myalgias, No Joint Swelling Skin : No Skin Lesions, No rash Neuro : Complaining of generalized Weakness, No Numbness, No Paresthesias, No Loss of Consciousness, No Dizziness, No Headache Psych : No Anxiety/Panic, No Depression, No SI/HI/AH/VH, No Social Issues, Heme/Lymph: No Bruising, No Bleeding,No Lymphadenopathy Endocrine : No Polyuria, No Polydipsia, No Temperature Intolerance [facility] Past Medical History Medical History Acute hyperkalemia CAD (coronary artery disease) ESRD on dialysis Hypertension Hypoglycemia Social History Social History Household Members: Family Housing: House Alcohol intake: never Smoking Status: Current every day smoker Use of substances other than those prescribed or required for medical reasons: Yes Substance Use Type: Marijuana Substance Use Frequency: Occasionally Advance Directives: No Advance Directives Information Provided: No service: No Physical Exam Vital Signs: Vital Signs: Last Vital Signs Temp 97.9 F 09/14/20 05:55 Pulse 60 09/14/20 07:01 Resp 18 09/14/20 07:01 BP 115/64 09/14/20 07:01 Pulse Ox 100 09/14/20 07:01 Body Mass Index 20.5 Appearance: Alert. Oriented X3. No acute distress. Has generalized weakness, has trouble sitting up due to weakness Eyes: Pupils equal, round and reactive to light. ENT: Pharynx normal. Neck: Normal inspection. Neck supple. No lymph nodes noted. No crepitus CVS: Normal heart rate and rhythm. Pulses normal. Normal S1 and S2 Respiratory: Mild respiratory distress, on BiPAP, bilateral crackles, no wheezing Abdomen: Soft and nontender. No rigidity. No distention. Skin: Skin warm and dry. Bilateral calciphylaxis of lower extremities Extremities: No lower extremity edema. See above Neuro: Oriented X 3. No motor deficit. No sensory deficit. Moving all extermities. No slurred speech. Course Course Course Narrative: Patient is now on BiPAP, tolerating it well. Labs pending. Patient will need dialysis today. Sign out given to Dr. Oreilly MDM - SOB/Dyspnea Lab Data Result diagrams: 09/14/20 06:42 09/14/20 06:42 ECG Data Attestation: I personally reviewed and interpreted this ECG as follows: (Sinus rhythm, heart rate 62, ST segment depression or elevation, no T-wave inversion, QTC 499) Discharge Plan Discharge Prescriptions: No Action labetalol 200 mg tablet 600 mg PO BID RF: 0 tramadol 50 mg tablet 150 mg PO BID PRN (Reason: Pain, Moderate) RF: 0 hydromorphone 2 mg tablet 2 - 4 mg PO Q6H PRN (Reason: Pain, Severe) RF: 0 nifedipine 30 mg tablet extended release 30 mg PO DAILY Qty: 30 RF: 0
[2020-09-14 06:56] LABS: Basophils Absolute Auto 0.1 X10*3/uL (0.0-0.2); Basophils Percent Auto 0.8 % (0-2); Eosinophils Absolute Auto 0.1 X10*3/uL (0.0-0.4); Eosinophils Percent Auto 1.2 % (0-4); Hemoglobin 9.6 g/dl (14.0-18.0); Imm Gran Abs Auto 0.08 X10*3/uL (0.00-0.03); Imm Gran Pct Auto 0.9 % (0.0-0.4); Lymphocytes Absolute Auto 1.7 X10*3/uL (1.2-4.9); Lymphocytes Percent Auto 18.1 % (20-40); Mean Corpuscular Hemoglobin 32.8 pg (27.0-33.0); Mean Corpuscular Volume 102.4 fL (80-98); Mean Platelet Volume 11.2 fL (9.4-12.4); Monocytes Absolute Auto 0.7 X10*3/uL (0.1-1.2); Monocytes Percent Auto 7.1 % (2-11); NRBC Pct Auto 0.5 /100WBC (0.0-0.2); Neutrophils Absolute Auto 6.7 X10*3/uL (2.0-8.3); Neutrophils Percent Auto 71.9 % (45-73); Platelet Count 201 X10*3/uL (160-400); Red Blood Count 2.93 X10*6/uL (4.60-5.80); Red Cell Distribution Width 17.1 % (11.0-16.0); White Blood Count 9.3 X10*3/uL (4.8-10.8)
[2020-09-14 07:01] VITALS: BP 115/64; PULSE 60; RESP 18; O2SAT 100
[2020-09-14 07:37] LABS: Alanine Aminotransferase 17 U/L (0-40); Alkaline Phosphatase 362 U/L (39-117); Anion Gap 35 (12-20); Aspartate Amino Transferase 44 U/L (5-37); Bilirubin Direct 1.3 mg/dL (0.0-0.5); Bilirubin Total 1.7 mg/dL (0.0-1.0); Blood Urea Nitrogen 54 mg/dL (9-16); Carbon Dioxide 17 mmol/L (22-29); Chloride 95 mmol/L (96-108); Creatinine Clr Calc Pharmacy 17.1; Estimated Glomerular Filt Rate 13; Glucose Random 86 mg/dL (60-115); Potassium 6.4 mmol/L (3.3-5.1); Sodium 141 mmol/L (135-145); Total Protein 6.4 g/dL (6.5-8.0)
[2020-09-14 07:38] LABS: B Type Natriuretic Peptide 2771 pg/mL (<100); Troponin-I High Sensitivity 101.7 ng/L (<3.5-35.0)
[2020-09-14] MEDS: Sodium Bicarbonate 8.4% 50 MEQ/50 ML VIAL IVPUSH (07:47)
[2020-09-14] MEDS: Calcium Gluconate/NaCl,Iso-Osm 2 GM/100 ML PLAST..BAG IV (07:47)
--- NOTE | 2020-09-14 07:58 | PC.NURSE ---
pt receives dialysis at [facility] [phone]
[2020-09-14 08:17] LABS: COVID-19 Test Negative (Negative); IDNOW Serial# 9DD0AD1C
[2020-09-14] MEDS: Albuterol Sulfate (0.083%) 2.5 MG/3 ML VIAL.NEB 5 MG INHALE (08:29)
[2020-09-14 08:30] VITALS: PULSE 60; O2SAT 98
[2020-09-14 09:25] VITALS: BP 102/66; PULSE 62; O2SAT 95
== END 2020-09-14 10:25 | disposition other institution (70) ==
PROVIDERS: Emergency Medicine; Emergency Provider Emergency Medicine
DX: I12.0 Hypertensive chronic kidney disease with stage 5 chronic kidney disease or end stage renal disease (principal); N18.6 End stage renal disease; Z99.2 Dependence on renal dialysis; R06.02 Shortness of breath; R53.1 Weakness; F17.200 Nicotine dependence, unspecified, uncomplicated; F12.90 Cannabis use, unspecified, uncomplicated
CPT/HCPCS: 36415; 71045; 80048; 80076; 83880; 84484; 85025; 87635; 93005; 94640; 94644; 94660; 96365; 96366; 96374; 96375; 99285; J0610

== ENCOUNTER 2020-10-12 12:42 | Inpatient (IN) | payer MEDICARE, MEDICAID, SELFPAY ==
[2020-10-12] VITALS (21 sets, daily range): BP systolic 110–186; BP diastolic 64–117; PULSE 111–144; RESP 17–38; TEMP 36.4–37.3; O2SAT 93–100; BMI 22.1; BMI 19.5
--- NOTE | ~2020-10-12 | XR_ITS ---
EXAMINATION: XR CHEST CLINICAL INFORMATION: ET tube placement COMPARISON: Chest 10/12/2020 TECHNIQUE: Frontal view of the chest was obtained. FINDINGS: The lungs are well-expanded with bilateral parahilar prominent increased interstitial markings. Heart size is borderline enlarged. There is a new endotracheal tube with its tip 5.72 cm above the radha. New enteric tube is below the diaphragm in the stomach. There is a left central catheter with its tip in atriocaval junction. There is no pleural effusion or pneumothorax. No gross bony abnormality. XR/XR chest 1V IMPRESSION: New support lines and catheters in satisfactory position. Increase bilateral parahilar interstitial markings are stable. No confluent infiltrate, effusion or pneumothorax.
--- NOTE | ~2020-10-12 | XR_ITS ---
EXAMINATION: XR CHEST CLINICAL INFORMATION: Tachycardia. COMPARISON: Chest 09/14/2020 TECHNIQUE: Frontal view of the chest was obtained. FINDINGS: The cardiac silhouette is enlarged. There is increased bilateral reticular interstitial parahilar markings, question pneumonitis versus edema. Similar findings were seen on previous exam 09/14/2020. No consolidation or pleural effusion seen. Visualized bony thorax is unremarkable. XR/XR chest 1V IMPRESSION: Increased bilateral parahilar interstitial markings, question pneumonitis versus interstitial edema. No change from 09/14/2020.
--- NOTE | 2020-10-12 12:57 | ECG_ITS ---
Test Reason : TACHYCARDIA Blood Pressure : / mmHG Vent. Rate : 149 BPM Atrial Rate : 298 BPM P-R Int : 000 ms QRS Dur : 106 ms QT Int : 326 ms P-R-T Axes : 000 096 -41 degrees QTc Int : 513 ms Atrial flutter with variable A-V block Rightward axis T wave abnormality, consider inferior ischemia Abnormal ECG When compared with ECG of 14-SEP-2020 06:20, Atrial flutter has replaced Sinus rhythm Vent. rate has increased BY 87 BPM Referred By: Aruna Rivero Electronically Signed By:GENO TSAI
--- NOTE | 2020-10-12 13:32 | PC.NURSE ---
iv line established. patient restless in bed. patient states he has restless legs and they are bothering him at this time. patient states the only thing that works for this is narcotics, i need hydromorphone, or you can give me any kind of narcotics . PA relayed this information and patien will not be getting narcotic meds for restless legs. will medicate per orders for BP.
[2020-10-12] MEDS: Labetalol HCL 100 MG/20 ML VIAL 20 MG IVPUSH (13:36)
--- NOTE | 2020-10-12 13:41 | HE.PHANOTE ---
Pharmacy Consult ? Medication Reconciliation Pharmacy has completed the medication reconciliation and there were no significant medication issues requiring provider attention. Iona VelazquezD
[2020-10-12 13:52] LABS: MANUAL DIFF FLAG NO
[2020-10-12 13:55] LABS: Basophils Percent Auto 0.2 % (0-2); Eosinophils Absolute Auto 0.1 X10*3/uL (0.0-0.4); Eosinophils Percent Auto 0.4 % (0-4); Hematocrit 31.3 % (42-52); Hemoglobin 10.2 g/dl (14.0-18.0); Imm Gran Abs Auto 0.06 X10*3/uL (0.00-0.03); Imm Gran Pct Auto 0.4 % (0.0-0.4); Lymphocytes Absolute Auto 1.3 X10*3/uL (1.2-4.9); Lymphocytes Percent Auto 9.2 % (20-40); Mean Corpuscular HGB Conc 32.6 g/dl (31.0-36.0); Mean Corpuscular Hemoglobin 32.7 pg (27.0-33.0); Mean Corpuscular Volume 100.3 fL (80-98); Mean Platelet Volume 11.1 fL (9.4-12.4); Monocytes Absolute Auto 1.1 X10*3/uL (0.1-1.2); Monocytes Percent Auto 8.1 % (2-11); Neutrophils Absolute Auto 11.1 X10*3/uL (2.0-8.3); Neutrophils Percent Auto 81.7 % (45-73); Platelet Count 223 X10*3/uL (160-400); Red Blood Count 3.12 X10*6/uL (4.60-5.80); Red Cell Distribution Width 18.1 % (11.0-16.0); White Blood Count 13.6 X10*3/uL (4.8-10.8)
[2020-10-12 14:12] LABS: INTERNATIONAL NORM RATIO 1.5 (0.9-1.1); Prothrombin Time 17.4 SEC (10.8-13.0)
[2020-10-12 14:15] LABS: Partial Thromboplastin Time 35.5 SEC (24.1-38.0)
[2020-10-12 14:17] LABS: Ammonia 39 umol/L (13-55)
[2020-10-12 14:23] LABS: Lipase 19 U/L (8-78)
--- NOTE | 2020-10-12 14:24 | ED_ITS ---
HPI - General Adult General Chief complaint: Arrhythmia/Palpitations Stated complaint: tachy Time Seen by Provider: 10/12/20 12:45 Source: EMS Mode of arrival: EMS History of Present Illness HPI narrative: 44-year-old male past medical history of ESRD on HD MWF, restless leg syndrome, HTN, CAD, s/p failed renal transplant, anemia of chronic disease, BIBA from dialysis after receiving 1 hour of HD for tachycardia noted to be in the 130s. Patient admits has been tachycardic x3 days, reports chronic SOB, unchanged, otherwise offers no complaints. Denies fever, chills, cough, chest pain, abdominal pain, nausea/vomiting/diarrhea, LE edema Patient reports noncompliance with his labetalol and nifedipine x a couple days Related Data Home Medications Medication Instructions Recorded Confirmed hydromorphone 2 - 4 mg PO Q6H PRN MDD 12 MG 03/29/20 10/12/20 labetalol 400 mg PO BID 03/29/20 10/12/20 tramadol 150 mg PO BID PRN 03/29/20 10/12/20 dolutegravir [Tivicay] 1 tab PO DAILY 10/12/20 10/12/20 ferric citrate [Auryxia] 2 tab PO TIDAC 10/12/20 10/12/20 lamivudine 1 tab PO DAILY 10/12/20 10/12/20 metoprolol succinate 1 tab PO BID 10/12/20 10/12/20 omeprazole 1 cap PO DAILY 10/12/20 10/12/20 Previous Rx's Medication Instructions Recorded nifedipine 30 mg PO DAILY #30 tab 03/30/20 Allergies Allergy/AdvReac Type Severity Reaction Status Date / Time Alupent Allergy Unknown Unknown Uncoded 09/14/20 06:28 From Alupent Allergy Unknown HALLUCINATI Uncoded 09/14/20 06:28 ONS Review of Systems Review of Systems: Constitutional: No Fever, No Chills, No Fatigue, No Malaise ENT/Mouth: No Ear Pain, No Nasal Congestion, No Sinus Pain, No sore throat, No Swallowing Difficulty Eyes: No Eye Pain, No Vision Changes Cardiovascular: No Chest Pain, +Chronic SOB, No Dyspnea on Exertion, No Edema, No Palpitations Respiratory: No Cough, No Sputum Gastrointestinal: No Nausea, No Abdominal pain Genitourinary: No Dysuria, No Urinary Frequency, No Hematuria Musculoskeletal: No joint pain, No Myalgias, No Joint Swelling Skin: No Skin Lesions, No rash Neuro: No Weakness, No Numbness, No Headache Yes all other systems are reviewed and are negative [facility] Past Medical History Attestation statement: The following information was validated with the patient. Medical History (Updated 10/12/20 @ 16:55 by ADIEL Dorantes) A-fib Acute hyperkalemia CAD (coronary artery disease) ESRD on dialysis Hypertension Hypoglycemia Social History Social History Household Members: Family Housing: House Do you presently have visiting nurse or other home services: No Unable to assess alcohol history related to: Unknown Alcohol intake: never Smoked in Last 30 Days: No Use of substances other than those prescribed or required for medical reasons: No Substance Use Type: Marijuana Advance Directives: Yes Advance Directives Information Provided: Yes Advance Directives on File: No service: No Physical Exam Vital Signs: Vital Signs: Last Vital Signs Temp 99.1 F 10/12/20 12:52 Pulse 120 H 10/12/20 17:28 Resp 24 H 10/12/20 16:32 BP 142/90 H 10/12/20 17:28 Pulse Ox 97 10/12/20 17:38 Body Mass Index 22.1 Const: General: cooperative and ill appearing chronically Orientation/consciousness: patient oriented x3 Limitations: no limitations HENMT: Head: Yes normal to inspection Ears: hearing grossly normal bilaterally General nose exam: Normal external nose present Face and sinus: Yes normal facial exam Eyes: General: appearance normal, both eyes and all related structures Sclerae: scleral abnormal (Scleral icterus) EOM: EOMs intact bilaterally Neck: Neck: Yes normal visual inspection and Yes no meningeal signs Resp: Effort & Inspection: normal respiratory effort Auscultation: clear to auscultation bilaterally, no rales, no rhonchi and no wheezes Cardio: Rate: regular rate Heart sounds: S1 normal heart sound present and S2 normal heart sound present GI: Inspection: Yes normal to inspection Palpation (GI): Soft to palpation, nontender, no guarding and not rigid Skin: Rashes: no rashes Wounds: no wounds Neuro: General: patient oriented x3, tone normal, moves all extremities and no meningeal signs Extrem: General: Yes normal to inspection and Yes no pedal edema Course Course Course Narrative: -1445--mild leukocytosis of 13.6, H&H stable, renal function a t patient's baseline, potassium WNL -bilirubin/AST at patient's baseline. Troponin elevated at 76.6 (elevated priors) will obtain 3 hour repeat. BNP elevated > likely from fluid overload from incomplete dialysis. Patient tachypneic, WOB increased respiratory paged to place patient BiPAP. -1512--patient is still not responding to beta-blockers will start low dose diltiazem drip. Empiric Zosyn ordered. Avoiding IVF secondary to respiratory status and fluid overload XR chest 1V IMPRESSION: Increased bilateral parahilar interstitial markings, question pneumonitis versus interstitial edema. No change from 09/14/2020 -lactic acidosis of 5.8 likely from chronic ESRD rather than severe sepsis >1625-Dilt drip up to 7.5 mg heart rate still 130-140s, blood pressure stable. Plan to admit for further management -1648--patient removed from BiPAP and doing well -165--patient admitted to hospitalist service -Pt see's Dr. Osuna, Spoke to Renal, patient will get dialysis tonight Medical Decision Making [facility] Narrative Medical decision making narrative: 44-year-old male past medical history of ESRD on HD MWF, restless leg syndrome, HTN, CAD, s/p failed renal transplant, anemia of chronic disease, BIBA from dialysis after receiving 1 hour of HD for tachycardia noted to be in 130s. On exam initially hypertensive, tachycardic with A.flutter on EKG, jaundice, lungs CTA, abdomen soft/nontender. Concern for metabolic abnormalities vs symptoms from medication noncompliance and incomplete dialysis. Low concern for severe sepsis or infectious etiology Plan: EKG, labs, CXR, UA Lab Data Result diagrams: 10/12/20 13:46 10/12/20 13:46 Labs: Lab Results 10/12/20 10/12/20 10/12/20 Range/Units 13:46 13:46 13:46 WBC 13.6 H (4.8-10.8) X10*3/uL RBC 3.12 L (4.60-5.80) X10*6/uL Hgb 10.2 L (14.0-18.0) g/dl Hct 31.3 L (42-52) % MCV 100.3 H (80-98) fL MCH 32.7 (27.0-33.0) pg MCHC 32.6 (31.0-36.0) g/dl RDW 18.1 H (11.0-16.0) % Plt Count 223 (160-400) X10*3/uL MPV 11.1 (9.4-12.4) fL Immature Gran % (Auto) 0.4 (0.0-0.4) % Neut % (Auto) 81.7 H (45-73) % Lymph % (Auto) 9.2 L (20-40) % Hudson % (Auto) 8.1 (2-11) % Eos % (Auto) 0.4 (0-4) % Baso % (Auto) 0.2 (0-2) % Lymph # (Auto) 1.3 (1.2-4.9) X10*3/uL Hudson # (Auto) 1.1 (0.1-1.2) X10*3/uL Eos # (Auto) 0.1 (0.0-0.4) X10*3/uL Baso # (Auto) 0.0 (0.0-0.2) X10*3/uL Abs Immat Gran (auto) 0.06 H (0.00-0.03) X10*3/uL Absolute Neuts (auto) 11.1 H (2.0-8.3) X10*3/uL Absolute Nucleated RBC 0.000 (0.0-0.012) X10*3/uL Nucleated RBC % (auto) 0.0 (0.0-0.2) /100WBC PT (10.8-13.0) SEC INR (0.9-1.1) APTT (24.1-38.0) SEC Sodium 141 (135-145) mmol/L Potassium 4.8 D (3.3-5.1) mmol/L Chloride 94 L (96-108) mmol/L Carbon Dioxide 20 L (22-29) mmol/L Anion Gap 32 H (12-20) BUN 63 H (9-16) mg/dL Creatinine 4.62 H* (0.5-1.4) mg/dL Estim Creat Clear Calc 19.8 Estimated GFR 14 Random Glucose 99 (60-115) mg/dL Lactic Acid (0.5-2.0) mmol/L Calcium 9.0 (8.4-10.2) mg/dL Magnesium (1.6-2.6) mg/dL Total Bilirubin (0.0-1.0) mg/dL Direct Bilirubin (0.0-0.5) mg/dL AST (5-37) U/L ALT (0-40) U/L Alkaline Phosphatase (39-117) U/L Ammonia 39 (13-55) umol/L Troponin I High Sens (<3.5-35.0) ng/L B-Natriuretic Peptide (<100) pg/mL Total Protein (6.5-8.0) g/dL Albumin (3.5-5.0) g/dL Lipase (8-78) U/L COVID-19 (ALFIE) (Negative) COVID-19 Clin Com 10/12/20 10/12/20 10/12/20 Range/Units 13:46 13:46 13:46 WBC (4.8-10.8) X10*3/uL RBC (4.60-5.80) X10*6/uL Hgb (14.0-18.0) g/dl Hct (42-52) % MCV (80-98) fL MCH (27.0-33.0) pg MCHC (31.0-36.0) g/dl RDW (11.0-16.0) % Plt Count (160-400) X10*3/uL MPV (9.4-12.4) fL Immature Gran % (Auto) (0.0-0.4) % Neut % (Auto) (45-73) % Lymph % (Auto) (20-40) % Hudson % (Auto) (2-11) % Eos % (Auto) (0-4) % Baso % (Auto) (0-2) % Lymph # (Auto) (1.2-4.9) X10*3/uL Hudson # (Auto) (0.1-1.2) X10*3/uL Eos # (Auto) (0.0-0.4) X10*3/uL Baso # (Auto) (0.0-0.2) X10*3/uL Abs Immat Gran (auto) (0.00-0.03) X10*3/uL Absolute Neuts (auto) (2.0-8.3) X10*3/uL Absolute Nucleated RBC (0.0-0.012) X10*3/uL Nucleated RBC % (auto) (0.0-0.2) /100WBC PT 17.4 H (10.8-13.0) SEC INR 1.5 H (0.9-1.1) APTT 35.5 (24.1-38.0) SEC Sodium (135-145) mmol/L Potassium (3.3-5.1) mmol/L Chloride (96-108) mmol/L Carbon Dioxide (22-29) mmol/L Anion Gap (12-20) BUN (9-16) mg/dL Creatinine (0.5-1.4) mg/dL Estim Creat Clear Calc Estimated GFR Random Glucose (60-115) mg/dL Lactic Acid (0.5-2.0) mmol/L Calcium (8.4-10.2) mg/dL Magnesium 2.3 (1.6-2.6) mg/dL Total Bilirubin 1.8 H (0.0-1.0) mg/dL Direct Bilirubin 1.5 H (0.0-0.5) mg/dL AST 47 H (5-37) U/L ALT 25 (0-40) U/L Alkaline Phosphatase 501 H D (39-117) U/L Ammonia (13-55) umol/L Troponin I High Sens 76.6 H* (<3.5-35.0) ng/L B-Natriuretic Peptide (<100) pg/mL Total Protein 6.6 (6.5-8.0) g/dL Albumin 2.9 L (3.5-5.0) g/dL Lipase (8-78) U/L COVID-19 (ALFIE) (Negative) COVID-19 Clin Com 10/12/20 10/12/20 10/12/20 Range/Units 13:46 13:46 13:47 WBC (4.8-10.8) X10*3/uL RBC (4.60-5.80) X10*6/uL Hgb (14.0-18.0) g/dl Hct (42-52) % MCV (80-98) fL MCH (27.0-33.0) pg MCHC (31.0-36.0) g/dl RDW (11.0-16.0) % Plt Count (160-400) X10*3/uL MPV (9.4-12.4) fL Immature Gran % (Auto) (0.0-0.4) % Neut % (Auto) (45-73) % Lymph % (Auto) (20-40) % Hudson % (Auto) (2-11) % Eos % (Auto) (0-4) % Baso % (Auto) (0-2) % Lymph # (Auto) (1.2-4.9) X10*3/uL Hudson # (Auto) (0.1-1.2) X10*3/uL Eos # (Auto) (0.0-0.4) X10*3/uL Baso # (Auto) (0.0-0.2) X10*3/uL Abs Immat Gran (auto) (0.00-0.03) X10*3/uL Absolute Neuts (auto) (2.0-8.3) X10*3/uL Absolute Nucleated RBC (0.0-0.012) X10*3/uL Nucleated RBC % (auto) (0.0-0.2) /100WBC PT (10.8-13.0) SEC INR (0.9-1.1) APTT (24.1-38.0) SEC Sodium (135-145) mmol/L Potassium (3.3-5.1) mmol/L Chloride (96-108) mmol/L Carbon Dioxide (22-29) mmol/L Anion Gap (12-20) BUN (9-16) mg/dL Creatinine (0.5-1.4) mg/dL Estim Creat Clear Calc Estimated GFR Random Glucose (60-115) mg/dL Lactic Acid (0.5-2.0) mmol/L Calcium (8.4-10.2) mg/dL Magnesium (1.6-2.6) mg/dL Total Bilirubin (0.0-1.0) mg/dL Direct Bilirubin (0.0-0.5) mg/dL AST (5-37) U/L ALT (0-40) U/L Alkaline Phosphatase (39-117) U/L Ammonia (13-55) umol/L Troponin I High Sens (<3.5-35.0) ng/L B-Natriuretic Peptide 2266 H (<100) pg/mL Total Protein (6.5-8.0) g/dL Albumin (3.5-5.0) g/dL Lipase 19 (8-78) U/L COVID-19 (ALFIE) Negative (Negative) COVID-19 Clin Com See Note 10/12/20 10/12/20 Range/Units 14:50 16:59 WBC (4.8-10.8) X10*3/uL RBC (4.60-5.80) X10*6/uL Hgb (14.0-18.0) g/dl Hct (42-52) % MCV (80-98) fL MCH (27.0-33.0) pg MCHC (31.0-36.0) g/dl RDW (11.0-16.0) % Plt Count (160-400) X10*3/uL MPV (9.4-12.4) fL Immature Gran % (Auto) (0.0-0.4) % Neut % (Auto) (45-73) % Lymph % (Auto) (20-40) % Hudson % (Auto) (2-11) % Eos % (Auto) (0-4) % Baso % (Auto) (0-2) % Lymph # (Auto) (1.2-4.9) X10*3/uL Hudson # (Auto) (0.1-1.2) X10*3/uL Eos # (Auto) (0.0-0.4) X10*3/uL Baso # (Auto) (0.0-0.2) X10*3/uL Abs Immat Gran (auto) (0.00-0.03) X10*3/uL Absolute Neuts (auto) (2.0-8.3) X10*3/uL Absolute Nucleated RBC (0.0-0.012) X10*3/uL Nucleated RBC % (auto) (0.0-0.2) /100WBC PT (10.8-13.0) SEC INR (0.9-1.1) APTT (24.1-38.0) SEC Sodium (135-145) mmol/L Potassium (3.3-5.1) mmol/L Chloride (96-108) mmol/L Carbon Dioxide (22-29) mmol/L Anion Gap (12-20) BUN (9-16) mg/dL Creatinine (0.5-1.4) mg/dL Estim Creat Clear Calc Estimated GFR Random Glucose (60-115) mg/dL Lactic Acid 5.8 H* (0.5-2.0) mmol/L Calcium (8.4-10.2) mg/dL Magnesium (1.6-2.6) mg/dL Total Bilirubin (0.0-1.0) mg/dL Direct Bilirubin (0.0-0.5) mg/dL AST (5-37) U/L ALT (0-40) U/L Alkaline Phosphatase (39-117) U/L Ammonia (13-55) umol/L Troponin I High Sens 80.6 H* (<3.5-35.0) ng/L B-Natriuretic Peptide (<100) pg/mL Total Protein (6.5-8.0) g/dL Albumin (3.5-5.0) g/dL Lipase (8-78) U/L COVID-19 (ALFIE) (Negative) COVID-19 Clin Com ECG Data Attestation: I personally reviewed and interpreted this ECG as follows: Interpretation: EKG a flutter with variable AV block. Rate of 149. QTC 513 Discharge Plan Discharge Clinical Impression: Atrial flutter, End-stage renal disease (ESRD), Interstitial edema Patient Disposition: Admitted As Inpatient
[2020-10-12 14:25] LABS: COVID-19 Test Negative (Negative)
[2020-10-12 14:25] LABS: Alanine Aminotransferase 25 U/L (0-40); Albumin Level 2.9 g/dL (3.5-5.0); Alkaline Phosphatase 501 U/L (39-117); Aspartate Amino Transferase 47 U/L (5-37); Bilirubin Direct 1.5 mg/dL (0.0-0.5); Bilirubin Total 1.8 mg/dL (0.0-1.0); Magnesium 2.3 mg/dL (1.6-2.6); Total Protein 6.6 g/dL (6.5-8.0)
[2020-10-12 14:26] LABS: Anion Gap 32 (12-20); Blood Urea Nitrogen 63 mg/dL (9-16); Carbon Dioxide 20 mmol/L (22-29); Chloride 94 mmol/L (96-108); Creatinine Clr Calc Pharmacy 19.8; Estimated Glomerular Filt Rate 14; Glucose Random 99 mg/dL (60-115); Potassium 4.8 mmol/L (3.3-5.1); Sodium 141 mmol/L (135-145)
[2020-10-12 14:32] LABS: B Type Natriuretic Peptide 2266 pg/mL (<100)
[2020-10-12 14:34] LABS: Troponin-I High Sensitivity 76.6 ng/L (<3.5-35.0)
[2020-10-12] MEDS: Metoprolol Tartrate 5 MG/5 ML VIAL IVPUSH (14:40)
--- NOTE | 2020-10-12 14:59 | PC.NURSE ---
patient work of breathing increased. patient states he doesn't feel like he working to breathe, but definitely appears it. pa aware, this rn recalls last time pt was here he was placed on bipap for similar issue. RT called and in to see patient, agreed with bipap. patient placed on by PT. patient continues to be tachycardic but improving. meds given as ordered. lactic and first st of cultures drawn.
[2020-10-12 15:17] LABS: Lactic Acid 5.8 mmol/L (0.5-2.0)
[2020-10-12] MEDS: Piperacillin Sodium/Tazobactam 2.25 GM in 0.9 % Sodium Chloride 50 ML IV (15:30)
[2020-10-12] MEDS: dilTIAZem HCL 125 MG in 0.9 % Sodium Chloride 100 ML IVCONT (15:32)
--- NOTE | 2020-10-12 15:37 | PC.NURSE ---
penny bradley start cardizem drip at 5mg/hour and titrate slowly.
[2020-10-12] MEDS: 0.9 % Sodium Chloride 250 ML 999 ML IV (16:01)
[2020-10-12] MEDS: HYDROmorphone HCl 0.5 MG/0.5 ML SYRINGE IVPUSH ×2 (16:32→23:10)
[2020-10-12 16:54] LABS: Reflex Lactate? Lactic Acid Added
[2020-10-12 17:49] LABS: Troponin-I High Sensitivity 80.6 ng/L (<3.5-35.0)
[2020-10-12 18:02] LABS: ~Lactic Acid-LAB USE ONLY 5.6 mmol/L (0.5-2.0)
[2020-10-12 19:42] LABS: Reflex Lactate? 2 Y
[2020-10-12] MEDS: HYDROmorphone HCl 2 MG TABLET PO (19:57)
[2020-10-12] MEDS: traMADoL HCL 50 MG TABLET 150 MG PO (20:04)
--- NOTE | 2020-10-12 20:06 | HP_ITS ---
DATE OF SERVICE: 10/12/2020 CHIEF COMPLAINT: Rapid heart rate. HISTORY OF PRESENTING ILLNESS: This is a 44-year-old gentleman with past medical history significant for end-stage renal disease, on hemodialysis Thursday, Thursday, and Thursday; history of hypertension; coronary artery disease; restless legs syndrome; status post failed renal transplant; anemia of chronic disease; who was receiving hemodialysis this morning, but after 1 hour into hemodialysis, the patient was noted to have tachycardia with ventricular rate in 130s. The patient complained of shortness of breath, palpitations, therefore he was transported to [facility]. In the ER, the patient was noted to be in atrial flutter with rapid ventricular response. The patient was noted to be significantly tachypneic with increased work of breathing. Therefore, he was placed on BiPAP and IV Cardizem drip was started after he did not respond to beta blockers. One-view chest x-ray showed bilateral parahilar interstitial prominence suggestive of interstitial edema. After an hour long BiPAP, the patient's symptoms improved, therefore by BiPAP of was removed and it was decided to admit the patient for continued monitoring and treatment of new onset atrial flutter with rapid ventricular response along with leukocytosis. PAST MEDICAL HISTORY: 1. Significant for end-stage renal disease, on hemodialysis. 2. Restless legs syndrome. 3. History of hypertension. 4. History of coronary artery disease. 5. History of anemia of chronic disease. PAST SURGICAL HISTORY: None. SOCIAL HISTORY: The patient lives with his grandparents. He denies tobacco use, alcohol, or illicit drug use. 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 FAMILY HISTORY: The patient denies any family history of premature coronary artery disease or diabetes. ALLERGIES: THE PATIENT IS ALLERGIC TO ALUPENT THAT CAUSES HALLUCINATIONS. MEDICATIONS: Medications on admission are Tivicay 1 tab daily, ferric citrate 2 tablets by mouth t.i.d., hydromorphone 2 to 4 mg every 6 hours as needed, labetalol 400 b.i.d., Lamivudine 1 tablet daily, metoprolol 1 tablet b.i.d., nifedipine 30 mg daily, omeprazole 1 capsule by mouth daily, tramadol 150 mg by mouth b.i.d. as needed. 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 CVS: He denies any chest pain, but had palpitations. GI: He denies nausea, vomiting, or diarrhea. RESPIRATORY: He complains of cough that started last night and has shortness of breath that he feels is chronic. MUSCULOSKELETAL: The patient has bilateral lower extremity discomfort. All other systems are reviewed and are negative. PHYSICAL EXAMINATION: GENERAL: The patient is sitting in bed, appears to be short of breath, although able to talk in full sentences. HEENT: Pupils equal, round, and reactive to light and accommodation. NECK: Supple. Positive JVD. LUNGS: Clear to auscultation bilaterally. HEART: Irregularly irregular. ABDOMEN: Soft and nontender. Bowel sounds are audible. EXTREMITIES: Without edema. There is significant area of skin discoloration and tenderness consistent with calciphylaxis localized to both calfs. No open sores noted. EXTREMITIES: No edema. NEUROLOGIC: Nonfocal. The patient is alert and oriented x3. Speech is clear. Normal cognition. PSYCH: Appropriate affect. LABORATORY DATA: WBC 13.6, hematocrit of 31.3, hemoglobin of 10.2, and platelet count of 223. Sodium 141, potassium 4.8, chloride 94, bicarb of 20, BUN 63, creatinine of 4.62, lactic acid of 5.6, total bilirubin elevated at 1.8, direct bilirubin 1.5. Troponin 76, repeat troponin 80.6. BNP of 2266. Albumin low at 2.9. Two set of blood cultures are pending. IMAGING STUDIES: Chest x-ray showed increased bilateral parahilar interstitial markings, question pneumonitis versus interstitial edema. EKG showed atrial flutter with variable AV block, T-wave abnormality in inferior leads. ASSESSMENT AND PLAN: A 44-year-old gentleman with end-stage renal disease, on hemodialysis; status post failed renal transplant; anemia of chronic disease; presented to [facility] due to symptoms of shortness of breath and palpitation while receiving hemodialysis. Therefore, transported to [facility] and diagnosed to have atrial flutter. 1. Atrial flutter with rapid ventricular rate. The patient had no prior history of atrial fibrillation or flutter. The patient has been started on IV Cardizem drip that will be continued overnight. We will continue home medication, labetalol twice daily. The patient in the ER was treated with 20 mg of labetalol and 5 mg of IV metoprolol with no response, will check echocardiogram. Obtain Cardiology consultation. Follow BMP, TSH. 2. End-stage renal disease, on hemodialysis. The patient appears to be in pulmonary edema since did not receive full hemodialysis. Therefore, we will obtain Nephrology consultation to arrange for urgent hemodialysis in next 24 hours. We will follow electrolytes and clinical course closely,stable potassium,bicarbonate and ekg at present The patient will be monitored in telemetry unit. 3. Bilateral leg pain due to calciphylaxis. pt. has mild leukocytosis and ch. severe leg pain,admits that lesions are improving recieved iv zosyn in ER, blood cultures x 2 send, will follow clinical course closley and blood cultures The patient will be continued on home medications including Dilaudid and as needed tramadol for pain. 4. Elevated troponin that are flat and likely due to end-stage renal disease,no chest pain. We will follow echocardiogram and further workup depending on echo report. 5.HIV cont home medications 6.Restless legs syndrome. Continue tramadol as needed. 7. Venous thromboembolism prophylaxis. will be treated with subq heparin. 8. Disposition to home when the patient medically stable. patient wanted to leave against medical advice since he wanted comfortable bed strongly advice to stay for treatment otherwise he will not survive due to unstable rythm , fluid overload and possible infection after lengthy discussion patient agreed to stay. MD DAT Garduno/JEANNINE / [id number] MTDD
[2020-10-12 20:47] LABS: ~Lactic Acid-LAB USE ONLY 6.1 mmol/L (0.5-2.0)
[2020-10-12] MEDS: Lidocaine 4 % Patch ADH..PATCH 1 PATCH TRANSDERMA (20:51)
[2020-10-12] MEDS: Labetalol HCL 200 MG TABLET 400 MG PO (21:52)
[2020-10-12] MEDS: Heparin Sodium,Porcine 5,000 UNIT/ML VIAL 5000 UNIT SUBCUT (21:53)
[2020-10-12] MEDS: Metoprolol Succinate ER 25 MG TAB.ER.24H PO (21:53)
[2020-10-13] VITALS (31 sets, daily range): BP systolic 78–145; BP diastolic 30–97; PULSE 36–123; RESP 14–33; TEMP 33.9–36.5; O2SAT 93–100
--- NOTE | 2020-10-13 | ECG_ITS ---
Test Reason : hyperkalemia Blood Pressure : / mmHG Vent. Rate : 064 BPM Atrial Rate : 078 BPM P-R Int : 000 ms QRS Dur : 122 ms QT Int : 518 ms P-R-T Axes : 000 089 074 degrees QTc Int : 534 ms Atrial fibrillation (vs flutter) Non-specific intra-ventricular conduction delay Nonspecific ST abnormality Abnormal ECG When compared to the previous EKG of 12 oct 2020, rate slower Referred By: Marko Teresa Electronically Signed By:GENO TSAI
[2020-10-13] MEDS: 0.9 % Sodium Chloride Flush 3 ML SYRINGE IVFLUSH ×3 (00:17→15:18)
[2020-10-13] MEDS: HYDROmorphone HCl 2 MG TABLET PO (01:44)
--- NOTE | 2020-10-13 03:28 | P.EN_ITS ---
Event Note Date of Service: 10/13/20 Event Note: Bilateral leg wounds with eschar tissue: Patient has known calcip hylaxis. one of the wound has discharge. Will start the patient on vanc and Zosyn. Id consult. Patient complains of pain in the wounds. Will also consult will consult and General surgery for further recommendations.
[2020-10-13] MEDS: HYDROmorphone HCl 0.5 MG/0.5 ML SYRINGE IVPUSH (03:47)
[2020-10-13] MEDS: 0.9 % Sodium Chloride 250 ML 50 ML IVCONT (04:41)
[2020-10-13 05:32] LABS: Hematocrit 34.5 % (42-52); Hemoglobin 10.5 g/dl (14.0-18.0); Mean Corpuscular HGB Conc 30.4 g/dl (31.0-36.0); Mean Corpuscular Hemoglobin 32.5 pg (27.0-33.0); Mean Corpuscular Volume 106.8 fL (80-98); Mean Platelet Volume 11.6 fL (9.4-12.4); NRBC Pct Auto 0.6 /100WBC (0.0-0.2); Platelet Count 207 X10*3/uL (160-400); Red Blood Count 3.23 X10*6/uL (4.60-5.80); Red Cell Distribution Width 18.9 % (11.0-16.0); White Blood Count 13.8 X10*3/uL (4.8-10.8)
[2020-10-13] MEDS: Heparin Sodium,Porcine 5,000 UNIT/ML VIAL 5000 UNIT SUBCUT ×2 (05:55→18:34)
[2020-10-13] MEDS: Omeprazole 40 MG CAPSULE.DR PO (05:55)
--- NOTE | 2020-10-13 06:07 | P.EN_ITS ---
Event Note Date of Service: 10/13/20 Event Note: Hypoglycemia: Patient had an episode of hypoglycemia to 23. Maribel ent is symptomatic. Given dextrose and Ice cream; Seizure precautions Lactic acidosis: Patient on IV fluids. Follow-up lactate levels. Patient has ESRD. To monitor for signs of fluid overload closely. Hyperkalemia: Pt's Glucose <20; Cant give Insulin; Spoke to Nephrology provider relations representative for HD sooner. getting EKG stat. Will signout to Day hospitalist as well. Rapid response: Around 6:35 a.m. rapid response was called as the patient was unresponsive. I went in to examine the patient immediately patient went into asystole; subsequently Code Blue was called in; CPR started; patient was given 1 dose of epinephrine and 1 dose of bicarb. In few minutes patient woke up, had and rhythm on the monitor. Patient responding to commands. Patient was evaluated by ICU team as well. Subsequently patient being transferred to ICU. Fingerstick glucose was 87.
[2020-10-13 06:11] LABS: Glucose, Whole Blood < 10 mg/dL (60-115)
[2020-10-13 06:22] LABS: Anion Gap 38 (12-20); Blood Urea Nitrogen 41 mg/dL (9-16); Carbon Dioxide 13 mmol/L (22-29); Chloride 92 mmol/L (96-108); Creatinine Clr Calc Pharmacy 25.1; Estimated Glomerular Filt Rate 21; Glucose Random 23 mg/dL (60-115); Potassium 6.2 mmol/L (3.3-5.1); Sodium 137 mmol/L (135-145)
[2020-10-13 06:23] LABS: Lactic Acid 12.2 mmol/L (0.5-2.0)
[2020-10-13 06:27] LABS: Glucose, Whole Blood 125 mg/dL (60-115)
[2020-10-13] MEDS: Sodium Chloride 0.45 % 1,000 ML 125 ML IVCONT (06:32)
[2020-10-13 06:47] LABS: Glucose, Whole Blood 87 mg/dL (60-115)
[2020-10-13 06:47] LABS: Glucose, Whole Blood 87 mg/dL (60-115)
[2020-10-13] MEDS: propofoL 200 MG/20 ML VIAL 60 MG IVPUSH (07:01)
[2020-10-13] MEDS: Rocuronium Bromide 50 MG/5 ML VIAL 30 MG IVPUSH (07:03)
--- NOTE | 2020-10-13 07:14 | W.PM.CCHP ---
Procedures Date of Service Date of Service: 10/13/20 Intubation Intubation Comments: with Dr Arevalo Sedative: propofol Mg given: 60 Paralytic: rocuronium Mg given: 30 Laryngoscope: fiber optic video scope ET tube size: 7.5 Tube placement confirmation: visualized tube passing through cords, equal breath sounds bilaterally, no breath sounds over epigastrium and confirmation by capnometry Patient tolerated procedure: well and no complications Intubation complications: none
--- NOTE | 2020-10-13 07:25 | PC.NURSE ---
At 0630 pt had critical lab results of k 6.2, glucose 23, lactic 12.2. Pt drowsy but arousable at this time. Dr Teresa notified. D50 ordered and administered along with juice. Poc recheck at 0645-125. Ekg ordered and completed, afib rate 60s-70s. Order for 1/2 NS at 125 started, ABGs and antibiotics ordered. Around 0650 pt began to rachel down to 40s, pt unresponsive. Code blue called as pt lost pulse. Pulse returned after cpr, transferred to icu. Nurse to nurse report to be given.
[2020-10-13 07:29] LABS: Reflex Lactate? Lactic Acid Added
[2020-10-13] MEDS: EPINEPHrine 5 MG in Dextrose 5 % 250 ML 36.72 MG IVCONT ×2 (08:10→12:00)
[2020-10-13 08:21] LABS: Glucose, Whole Blood 72 mg/dL (60-115)
[2020-10-13] MEDS: propofoL 1,000 MG/100 ML VIAL 3.6 MG IVCONT (08:30)
[2020-10-13 08:42] LABS: Hematocrit 32.2 % (42-52); Hemoglobin 9.3 g/dl (14.0-18.0); Mean Corpuscular HGB Conc 28.9 g/dl (31.0-36.0); Mean Corpuscular Hemoglobin 32.7 pg (27.0-33.0); Mean Platelet Volume 11.7 fL (9.4-12.4); NRBC Pct Auto 0.7 /100WBC (0.0-0.2); Platelet Count 212 X10*3/uL (160-400); Red Blood Count 2.84 X10*6/uL (4.60-5.80); Red Cell Distribution Width 18.9 % (11.0-16.0); White Blood Count 16.3 X10*3/uL (4.8-10.8)
[2020-10-13 08:43] LABS: Mean Corpuscular Volume 113.4 fL (80-98)
[2020-10-13 08:44] LABS: VBG Base Excess -14.1 mmol/L; VBG HCO3 18 mmol/L (22-26); VBG pCO2 81 mmHg; VBG pH 6.96 (7.32-7.43); VBG pO2 61 mmHg
[2020-10-13 09:09] LABS: Band Neutrophils Percent 10 % (3-5); Lymphocytes Absolute Manual 2.4 X10*3/uL (0.6-4.8); Lymphocytes Percent Manual 15 % (20-40); Macrocytosis 3+ (>30) /OIF; Metamyelocytes Absolute 0.5 X10*3/uL; Metamyelocytes Percent 3 %; Monocytes Absolute Manual 0.7 X10*3/uL (0.0-1.2); Monocytes Percent Manual 4 % (2-11); Myelocytes Absolute 0.2 X10*/uL; Myelocytes Percent 1 %; Neutrophils Absolute Manual 12.6 X10*3/uL (2.2-7.9); Neutrophils Percent Manual 67 % (45-73); Platelet Estimate NORMAL (NORMAL); Platelet Morphology Comment NOTED; Polychromasia 1+ (0-2) /OIF; RBC Morphology NOTED
[2020-10-13 09:10] LABS: Giant Platelet PRESENT
[2020-10-13] MEDS: Sodium Bicarbonate 8.4% 50 MEQ/50 ML VIAL IVPUSH ×5 (09:25→19:05)
[2020-10-13] MEDS: Calcium Chloride 1 GM/10 ML SYRINGE IVPUSH (09:25)
[2020-10-13] MEDS: EPINEPHrine 5 MG in Dextrose 5 % 250 ML 367.2 MG IVCONT ×3 (09:28→13:17)
[2020-10-13 09:30] LABS: Anion Gap 43 (12-20); Blood Urea Nitrogen 42 mg/dL (9-16); Calcium 11.3 mg/dL (8.4-10.2); Carbon Dioxide 17 mmol/L (22-29); Chloride 88 mmol/L (96-108); Creatinine Clr Calc Pharmacy 24.7; Estimated Glomerular Filt Rate 21; Glucose Random 174 mg/dL (60-115); Potassium 5.4 mmol/L (3.3-5.1); Sodium 143 mmol/L (135-145)
[2020-10-13 09:38] LABS: Venous Blood Gas Refer to POC result
[2020-10-13 09:40] LABS: ~Lactic Acid-LAB USE ONLY 23.1 mmol/L (0.5-2.0)
[2020-10-13] MEDS: LAMIVUDINE PO (10:11)
[2020-10-13] MEDS: Dolutegravir Sodium 50 MG TABLET PO (10:11)
--- NOTE | 2020-10-13 10:17 | PM.CNGS ---
History of Present Illness Consult details Consult date: 10/13/20 Narrative: 44-year-old male multiple medical problems including end-stage renal disease and hypertension, admitted yesterday because of new onset atrial flutter. He was having tachycardia during hemodialysis yesterday. 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 The patient is currently intubated. He was noted to be very tachycardic early this morning and apparently went into cardiac arrest and was resuscitated and transferred to the intensive care unit. Patient is therefore unable to provide history. 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 He has known right-sided heart failure. He is wheelchair-bound., Review of Systems Review of Systems: Yes unobtainable due to endotracheal tube PMFSH Past Medical History Medical History (Updated 10/13/20 @ 10:22 by Dangelo Ward MD) A-fib Acute hyperkalemia CAD (coronary artery disease) Calciphylaxis ESRD on dialysis Hypertension Hypoglycemia Social History Social History Household Members: Family Housing: House Do you presently have visiting nurse or other home services: No Unable to assess alcohol history related to: Unknown Alcohol intake: never Patient Tobacco Use Status: Never used Tobacco Smoked in Last 30 Days: No Use of substances other than those prescribed or required for medical reasons: No Substance Use Type: Marijuana Currently Displaying Signs/Symptoms of Drug Intoxication Withdrawal: No Advance Directives: Yes Advance Directives Information Provided: Yes Advance Directives on File: No Advance Directives Date on File: 10/12/20 Do you have thoughts of harming others: None Do you have a plan to hurt others: No Plan Recently lost weight without trying: No Nutrition Risks: No Nutritional Risk Poor oral hygiene: No service: No Meds Allergies Allergy/AdvReac Type Severity Reaction Status Date / Time Alupent Allergy Unknown Unknown Uncoded 09/14/20 06:28 From Alupent Allergy Unknown HALLUCINATI Uncoded 09/14/20 06:28 ONS Active Medications: Current Medications Generic Name Dose Route Start Last Admin Trade Name Freq PRN Reason Stop Dose Admin Dolutegravir Sodium 50 mg 10/13/20 09:00 10/13/20 10:11 Dolutegravir Sodium 50 Mg Tablet PO 50 mg DAILY RADHA Administration Heparin Sodium (Porcine) 5,000 unit 10/12/20 18:49 10/13/20 05:55 Heparin Sodium,Porcine 5,000 Unit/Ml Vial SUBCUT 5,000 unit Q12H RADHA Administration Vancomycin HCl 1,000 mg/ 270 mls @ 270 mls/hr 10/13/20 15:00 Sodium Chloride IV 10/13/20 15:59 ONCE ONE Norepinephrine Bitartrate 8 mg in 250 mls @ 0 mls/hr 10/13/20 08:30 10/13/20 08:00 Levophed IVCONT 0.3 mcg/kg/min .Q0M RADHA 33.75 mls/hr Titration Protocol Per Protocol Epinephrine 5 mg/ Dextrose 255 mls @ 0 mls/hr 10/13/20 08:45 10/13/20 09:28 IVCONT 2 mcg/kg/min .Q0M RADHA 367.2 mls/hr Administration Protocol Per Protocol Vancomycin HCl 1,000 mg/ 270 mls @ 270 mls/hr 10/14/20 16:00 Sodium Chloride IV Q24H RADHA Lamivudine 100 mg 10/13/20 09:00 10/13/20 10:11 Lamivudine 100 Mg/10 Ml Solution PO 100 mg DAILY ON LICENSE OF [facility] Administration Lidocaine 1 patch 10/12/20 20:20 10/13/20 09:52 Lidocaine 4 % Patch Adh..Patch TRANSDERMA Not Given DAILY ON LICENSE OF [facility] Protocol Pharmacy Consult 1 each 10/12/20 12:56 Consult Rx Perform Med Rec MISCELLANE ONCE PRN Consult order Pharmacy Consult 1 each 10/12/20 15:21 Consult Rx Perform Med Rec MISCELLANE ONCE PRN Consult order Pharmacy Consult 1 each 10/13/20 06:31 Consult Rx Vancomycin Dosing MISCELLANE DAILY PRN Consult order Sodium Chloride 3 ml 10/13/20 00:00 10/13/20 09:49 0.9 % Sodium Chloride Flush 3 Ml Syringe IVFLUSH 3 ml QSHIFT ON LICENSE OF [facility] Administration Home Medications Medication Instructions Recorded Confirmed Last Taken Type hydromorphone 2 - 4 mg PO Q6H PRN MDD 12 MG 03/29/20 10/12/20 Unknown History labetalol 400 mg PO BID 03/29/20 10/12/20 10/11/20 History tramadol 150 mg PO BID PRN 03/29/20 10/12/20 Unknown History dolutegravir [Tivicay] 1 tab PO DAILY 10/12/20 10/12/20 10/11/20 History ferric citrate [Auryxia] 2 tab PO TIDAC 10/12/20 10/12/20 10/12/20 History lamivudine 1 tab PO DAILY 10/12/20 10/12/20 10/11/20 History metoprolol succinate 1 tab PO BID 10/12/20 10/12/20 10/12/20 History omeprazole 1 cap PO DAILY 10/12/20 10/12/20 10/11/20 History Physical Exam Vital Signs: Vital Signs: Last Vital Signs Temp 97.2 F 10/13/20 03:11 Pulse 112 H 10/13/20 09:06 Resp 25 H 10/13/20 09:06 BP 143/97 H 10/13/20 09:06 Pulse Ox 100 10/13/20 09:06 Body Mass Index 19.5 Const: Other: Intubated, on the ventilator, not communicative, ongoing dialysis Resp: Other: On the ventilator Cardio: Other: Tachycardic GI: Other: Soft, large liver liver edge palpable towards the right lower quadrant, no guarding rebound Extrem: Other: Area of dry eschar on the aspect of the right foot, about 2 point 5 cm, also with dry eschar near the area of the Achilles tendon posteriorly, about 2 x 3 cm; multiple other small healing eschars of the lower legs Results Labs Result diagrams: 10/13/20 08:33 10/13/20 08:33 Labs: Abnormal lab results 10/12/20 10/12/20 10/12/20 Range/Units 13:46 13:46 13:46 WBC 13.6 H (4.8-10.8) X10*3/uL RBC 3.12 L (4.60-5.80) X10*6/uL Hgb 10.2 L (14.0-18.0) g/dl Hct 31.3 L (42-52) % MCV 100.3 H (80-98) fL MCHC (31.0-36.0) g/dl RDW 18.1 H (11.0-16.0) % Neut % (Auto) 81.7 H (45-73) % Lymph % (Auto) 9.2 L (20-40) % Abs Immat Gran (auto) 0.06 H (0.00-0.03) X10*3/uL Absolute Neuts (auto) 11.1 H (2.0-8.3) X10*3/uL Absolute Nucleated RBC (0.0-0.012) X10*3/uL Nucleated RBC % (auto) (0.0-0.2) /100WBC Band Neutrophils % (3-5) % Lymphocytes % (Manual) (20-40) % Abs Neuts (Manual) (2.2-7.9) X10*3/uL PT (10.8-13.0) SEC INR (0.9-1.1) VBG pH (7.32-7.43) VBG HCO3 (22-26) mmol/L Potassium (3.3-5.1) mmol/L Chloride 94 L (96-108) mmol/L Carbon Dioxide 20 L (22-29) mmol/L Anion Gap 32 H (12-20) BUN 63 H (9-16) mg/dL Creatinine 4.62 H* (0.5-1.4) mg/dL POC Glucose (60-115) mg/dL Random Glucose (60-115) mg/dL Lactic Acid (0.5-2.0) mmol/L Lactic Acid Fup @ 2Hr (0.5-2.0) mmol/L Lactic Acid Fup @ 4Hr (0.5-2.0) mmol/L Calcium (8.4-10.2) mg/dL Total Bilirubin 1.8 H (0.0-1.0) mg/dL Direct Bilirubin 1.5 H (0.0-0.5) mg/dL AST 47 H (5-37) U/L Alkaline Phosphatase 501 H D (39-117) U/L Troponin I High Sens (<3.5-35.0) ng/L B-Natriuretic Peptide (<100) pg/mL Albumin 2.9 L (3.5-5.0) g/dL 10/12/20 10/12/20 10/12/20 Range/Units 13:46 13:46 13:46 WBC (4.8-10.8) X10*3/uL RBC (4.60-5.80) X10*6/uL Hgb (14.0-18.0) g/dl Hct (42-52) % MCV (80-98) fL MCHC (31.0-36.0) g/dl RDW (11.0-16.0) % Neut % (Auto) (45-73) % Lymph % (Auto) (20-40) % Abs Immat Gran (auto) (0.00-0.03) X10*3/uL Absolute Neuts (auto) (2.0-8.3) X10*3/uL Absolute Nucleated RBC (0.0-0.012) X10*3/uL Nucleated RBC % (auto) (0.0-0.2) /100WBC Band Neutrophils % (3-5) % Lymphocytes % (Manual) (20-40) % Abs Neuts (Manual) (2.2-7.9) X10*3/uL PT 17.4 H (10.8-13.0) SEC INR 1.5 H (0.9-1.1) VBG pH (7.32-7.43) VBG HCO3 (22-26) mmol/L Potassium (3.3-5.1) mmol/L Chloride (96-108) mmol/L Carbon Dioxide (22-29) mmol/L Anion Gap (12-20) BUN (9-16) mg/dL Creatinine (0.5-1.4) mg/dL POC Glucose (60-115) mg/dL Random Glucose (60-115) mg/dL Lactic Acid (0.5-2.0) mmol/L Lactic Acid Fup @ 2Hr (0.5-2.0) mmol/L Lactic Acid Fup @ 4Hr (0.5-2.0) mmol/L Calcium (8.4-10.2) mg/dL Total Bilirubin (0.0-1.0) mg/dL Direct Bilirubin (0.0-0.5) mg/dL AST (5-37) U/L Alkaline Phosphatase (39-117) U/L Troponin I High Sens 76.6 H* (<3.5-35.0) ng/L B-Natriuretic Peptide 2266 H (<100) pg/mL Albumin (3.5-5.0) g/dL 05/28/21 05/28/21 05/28/21 Range/Units 14:50 16:59 17:37 WBC (4.8-10.8) X10*3/uL RBC (4.60-5.80) X10*6/uL Hgb (14.0-18.0) g/dl Hct (42-52) % MCV (80-98) fL MCHC (31.0-36.0) g/dl RDW (11.0-16.0) % Neut % (Auto) (45-73) % Lymph % (Auto) (20-40) % Abs Immat Gran (auto) (0.00-0.03) X10*3/uL Absolute Neuts (auto) (2.0-8.3) X10*3/uL Absolute Nucleated RBC (0.0-0.012) X10*3/uL Nucleated RBC % (auto) (0.0-0.2) /100WBC Band Neutrophils % (3-5) % Lymphocytes % (Manual) (20-40) % Abs Neuts (Manual) (2.2-7.9) X10*3/uL PT (10.8-13.0) SEC INR (0.9-1.1) VBG pH (7.32-7.43) VBG HCO3 (22-26) mmol/L Potassium (3.3-5.1) mmol/L Chloride (96-108) mmol/L Carbon Dioxide (22-29) mmol/L Anion Gap (12-20) BUN (9-16) mg/dL Creatinine (0.5-1.4) mg/dL POC Glucose (60-115) mg/dL Random Glucose (60-115) mg/dL Lactic Acid 5.8 H* (0.5-2.0) mmol/L Lactic Acid Fup @ 2Hr 5.6 H* (0.5-2.0) mmol/L Lactic Acid Fup @ 4Hr (0.5-2.0) mmol/L Calcium (8.4-10.2) mg/dL Total Bilirubin (0.0-1.0) mg/dL Direct Bilirubin (0.0-0.5) mg/dL AST (5-37) U/L Alkaline Phosphatase (39-117) U/L Troponin I High Sens 80.6 H* (<3.5-35.0) ng/L B-Natriuretic Peptide (<100) pg/mL Albumin (3.5-5.0) g/dL 10/12/20 10/13/20 10/13/20 Range/Units 20:13 05:23 05:23 WBC 13.8 H (4.8-10.8) X10*3/uL RBC 3.23 L (4.60-5.80) X10*6/uL Hgb 10.5 L (14.0-18.0) g/dl Hct 34.5 L (42-52) % MCV 106.8 H D (80-98) fL MCHC 30.4 L (31.0-36.0) g/dl RDW 18.9 H (11.0-16.0) % Neut % (Auto) (45-73) % Lymph % (Auto) (20-40) % Abs Immat Gran (auto) (0.00-0.03) X10*3/uL Absolute Neuts (auto) (2.0-8.3) X10*3/uL Absolute Nucleated RBC 0.080 H (0.0-0.012) X10*3/uL Nucleated RBC % (auto) 0.6 H (0.0-0.2) /100WBC Band Neutrophils % (3-5) % Lymphocytes % (Manual) (20-40) % Abs Neuts (Manual) (2.2-7.9) X10*3/uL PT (10.8-13.0) SEC INR (0.9-1.1) VBG pH (7.32-7.43) VBG HCO3 (22-26) mmol/L Potassium 6.2 H* D (3.3-5.1) mmol/L Chloride 92 L (96-108) mmol/L Carbon Dioxide 13 L (22-29) mmol/L Anion Gap 38 H (12-20) BUN 41 H (9-16) mg/dL Creatinine 3.21 H (0.5-1.4) mg/dL POC Glucose (60-115) mg/dL Random Glucose 23 L* (60-115) mg/dL Lactic Acid (0.5-2.0) mmol/L Lactic Acid Fup @ 2Hr (0.5-2.0) mmol/L Lactic Acid Fup @ 4Hr 6.1 H* (0.5-2.0) mmol/L Calcium (8.4-10.2) mg/dL Total Bilirubin (0.0-1.0) mg/dL Direct Bilirubin (0.0-0.5) mg/dL AST (5-37) U/L Alkaline Phosphatase (39-117) U/L Troponin I High Sens (<3.5-35.0) ng/L B-Natriuretic Peptide (<100) pg/mL Albumin (3.5-5.0) g/dL 10/13/20 10/13/20 10/13/20 Range/Units 05:28 06:05 06:24 WBC (4.8-10.8) X10*3/uL RBC (4.60-5.80) X10*6/uL Hgb (14.0-18.0) g/dl Hct (42-52) % MCV (80-98) fL MCHC (31.0-36.0) g/dl RDW (11.0-16.0) % Neut % (Auto) (45-73) % Lymph % (Auto) (20-40) % Abs Immat Gran (auto) (0.00-0.03) X10*3/uL Absolute Neuts (auto) (2.0-8.3) X10*3/uL Absolute Nucleated RBC (0.0-0.012) X10*3/uL Nucleated RBC % (auto) (0.0-0.2) /100WBC Band Neutrophils % (3-5) % Lymphocytes % (Manual) (20-40) % Abs Neuts (Manual) (2.2-7.9) X10*3/uL PT (10.8-13.0) SEC INR (0.9-1.1) VBG pH (7.32-7.43) VBG HCO3 (22-26) mmol/L Potassium (3.3-5.1) mmol/L Chloride (96-108) mmol/L Carbon Dioxide (22-29) mmol/L Anion Gap (12-20) BUN (9-16) mg/dL Creatinine (0.5-1.4) mg/dL POC Glucose < 10 L* 125 H (60-115) mg/dL Random Glucose (60-115) mg/dL Lactic Acid 12.2 H* (0.5-2.0) mmol/L Lactic Acid Fup @ 2Hr (0.5-2.0) mmol/L Lactic Acid Fup @ 4Hr (0.5-2.0) mmol/L Calcium (8.4-10.2) mg/dL Total Bilirubin (0.0-1.0) mg/dL Direct Bilirubin (0.0-0.5) mg/dL AST (5-37) U/L Alkaline Phosphatase (39-117) U/L Troponin I High Sens (<3.5-35.0) ng/L B-Natriuretic Peptide (<100) pg/mL Albumin (3.5-5.0) g/dL 10/13/20 10/13/20 10/13/20 Range/Units 08:33 08:33 08:33 WBC 16.3 H (4.8-10.8) X10*3/uL RBC 2.84 L (4.60-5.80) X10*6/uL Hgb 9.3 L (14.0-18.0) g/dl Hct 32.2 L (42-52) % MCV 113.4 H D (80-98) fL MCHC 28.9 L (31.0-36.0) g/dl RDW 18.9 H (11.0-16.0) % Neut % (Auto) (45-73) % Lymph % (Auto) (20-40) % Abs Immat Gran (auto) (0.00-0.03) X10*3/uL Absolute Neuts (auto) (2.0-8.3) X10*3/uL Absolute Nucleated RBC 0.110 H (0.0-0.012) X10*3/uL Nucleated RBC % (auto) 0.7 H (0.0-0.2) /100WBC Band Neutrophils % 10 H (3-5) % Lymphocytes % (Manual) 15 L (20-40) % Abs Neuts (Manual) 12.6 H (2.2-7.9) X10*3/uL PT (10.8-13.0) SEC INR (0.9-1.1) VBG pH (7.32-7.43) VBG HCO3 (22-26) mmol/L Potassium 5.4 H (3.3-5.1) mmol/L Chloride 88 L (96-108) mmol/L Carbon Dioxide 17 L (22-29) mmol/L Anion Gap 43 H (12-20) BUN 42 H (9-16) mg/dL Creatinine 3.26 H (0.5-1.4) mg/dL POC Glucose (60-115) mg/dL Random Glucose 174 H D (60-115) mg/dL Lactic Acid (0.5-2.0) mmol/L Lactic Acid Fup @ 2Hr 23.1 H* (0.5-2.0) mmol/L Lactic Acid Fup @ 4Hr (0.5-2.0) mmol/L Calcium 11.3 H D (8.4-10.2) mg/dL Total Bilirubin (0.0-1.0) mg/dL Direct Bilirubin (0.0-0.5) mg/dL AST (5-37) U/L Alkaline Phosphatase (39-117) U/L Troponin I High Sens (<3.5-35.0) ng/L B-Natriuretic Peptide (<100) pg/mL Albumin (3.5-5.0) g/dL 10/13/20 Range/Units 08:35 WBC (4.8-10.8) X10*3/uL RBC (4.60-5.80) X10*6/uL Hgb (14.0-18.0) g/dl Hct (42-52) % MCV (80-98) fL MCHC (31.0-36.0) g/dl RDW (11.0-16.0) % Neut % (Auto) (45-73) % Lymph % (Auto) (20-40) % Abs Immat Gran (auto) (0.00-0.03) X10*3/uL Absolute Neuts (auto) (2.0-8.3) X10*3/uL Absolute Nucleated RBC (0.0-0.012) X10*3/uL Nucleated RBC % (auto) (0.0-0.2) /100WBC Band Neutrophils % (3-5) % Lymphocytes % (Manual) (20-40) % Abs Neuts (Manual) (2.2-7.9) X10*3/uL PT (10.8-13.0) SEC INR (0.9-1.1) VBG pH 6.96 L* (7.32-7.43) VBG HCO3 18 L (22-26) mmol/L Potassium (3.3-5.1) mmol/L Chloride (96-108) mmol/L Carbon Dioxide (22-29) mmol/L Anion Gap (12-20) BUN (9-16) mg/dL Creatinine (0.5-1.4) mg/dL POC Glucose (60-115) mg/dL Random Glucose (60-115) mg/dL Lactic Acid (0.5-2.0) mmol/L Lactic Acid Fup @ 2Hr (0.5-2.0) mmol/L Lactic Acid Fup @ 4Hr (0.5-2.0) mmol/L Calcium (8.4-10.2) mg/dL Total Bilirubin (0.0-1.0) mg/dL Direct Bilirubin (0.0-0.5) mg/dL AST (5-37) U/L Alkaline Phosphatase (39-117) U/L Troponin I High Sens (<3.5-35.0) ng/L B-Natriuretic Peptide (<100) pg/mL Albumin (3.5-5.0) g/dL Short CBC 10/12/20 10/13/20 10/13/20 Range/Units 13:46 05:23 08:33 WBC 13.6 H 13.8 H 16.3 H (4.8-10.8) X10*3/uL Hgb 10.2 L 10.5 L 9.3 L (14.0-18.0) g/dl Hct 31.3 L 34.5 L 32.2 L (42-52) % Plt Count 223 207 212 (160-400) X10*3/uL BMP 10/12/20 10/13/20 10/13/20 13:46 05:23 08:33 Sodium 141 137 143 Potassium 4.8 D 6.2 H* D 5.4 H Chloride 94 L 92 L 88 L Carbon Dioxide 20 L 13 L 17 L BUN 63 H 41 H 42 H Creatinine 4.62 H* 3.21 H 3.26 H Calcium 9.0 9.0 11.3 H D Liver Function 10/12/20 Range/Units 13:46 Total Bilirubin 1.8 H (0.0-1.0) mg/dL Direct Bilirubin 1.5 H (0.0-0.5) mg/dL AST 47 H (5-37) U/L ALT 25 (0-40) U/L Alkaline Phosphatase 501 H D (39-117) U/L Albumin 2.9 L (3.5-5.0) g/dL All other labs normal. Assessment and Plan (1) Calciphylaxis: Status: Acute He has able dry eschars consistent with calciphylaxis on the lower legs. I would not debride this at this time as healing becomes complicated. There is no drainage or cellulitis. I would recommend continue wound care. He is currently critically ill as well after cardiac arrest this morning. He has multiple medical problems including end-stage renal disease. The rest of the should be as per the ICU staff. Procedures Date of Service Date of Service: 10/13/20
[2020-10-13 10:38] LABS: Reflex Lactate? 2 Y
[2020-10-13 11:56] LABS: Glucose, Whole Blood 55 mg/dL (60-115)
[2020-10-13 12:06] LABS: ~Lactic Acid-LAB USE ONLY 18.9 mmol/L (0.5-2.0)
[2020-10-13 12:34] LABS: Glucose, Whole Blood 100 mg/dL (60-115)
[2020-10-13 13:31] LABS: VBG Base Excess -20.4 mmol/L; VBG HCO3 12 mmol/L (22-26); VBG pCO2 53 mmHg; VBG pH 6.94 (7.32-7.43); VBG pO2 45 mmHg
[2020-10-13 13:58] LABS: Blood Urea Nitrogen 29 mg/dL (9-16); Calcium 9.9 mg/dL (8.4-10.2); Creatinine Clr Calc Pharmacy 30.2; Estimated Glomerular Filt Rate 26; Glucose Random 97 mg/dL (60-115)
--- NOTE | 2020-10-13 14:00 | W.PM.CCHP ---
Procedures Date of Service Date of Service: 10/13/20 Central Line Placement Left IJ: Central Line Comments: Called to a cardiac arrest with restored circulation including cognitive function after 2-3 minutes but subsequently required intubation has no peripheral venous access and needs to be on positive inotropes and Crohn a tropes so after sterile preparation and draping and utilizing ultrasound guidance a gained easy access to the internal jugular vein on the left side without complication passed a J tipped guidewire to the right atrium over which a triple-lumen 16 cm central venous catheter was placed and by x-ray no pneumothorax no complication no bleeding tip placement in the right atrium Consent for Procedure: Emergent-no informed consent obtained Time out performed: Yes Sterile Technique Used: Yes Patient placed on monitor/pulse ox: Yes prep: mask, gown and gloves Central line prep: Chlorhexidine scrub Local anesthesia used: lidocaine 1% Central line lumen inserted: triple Post procedure: sutured in place, good blood return, all ports aspirated, flushed, capped and sterile dressing applied Post procedure x-ray: tip of catheter in good position and no pneumothorax seen Patient tolerated procedure: well and no complications Complications: none
--- NOTE | 2020-10-13 14:03 | W.PM.CCCN ---
History of Present Illness Data of Consult Service Date: 10/13/20 Primary Care Provider: Unknown Physician HPI Reason for consult: Cardiac arrest 44-year-old end-stage renal disease and dialysis dependent and underlying hypertensive who during dialysis developed rapid atrial fibrillation and immediately developed shortness of breath requiring transfer to the hospital being placed on BiPAP for a while and IV Cardizem drip and this morning had increased respiratory distress and then progressive bradycardia and then became pulseless CPR required for 2-3 minutes with epinephrine having been given and Rett respirations provided by a bagging and then he did 0 awaken with return of spontaneous circulation and we quickly brought him down to the ICU where he started to developed increased respiratory distress audible wheezing and again progressive bradycardia lost blood pressure and pulse and you could see that he was nearly with cardiac standstill by echo at the time and we continue to chemically resuscitate and knowing that his potassium was last 6.2 so we gave him bicarb IV along with IV calcium to which he responded but he needed multiple rounds of epinephrine for his bradycardia and he had ultimately 4 amps or 200 mEq of IV bicarb and at least 200 mg of elemental calcium and inotrope be in chronotropic were always restored but of course the rhythm still remained atrial fibrillation He was profoundly acidotic with progressively climbing lactate ever since he entered the hospital at 6 he then increased to 12 and then to 24 this morning but the last 1 this afternoon was at 18 but the pH is still 6.94 and at 1 point I increased his respiratory rate and tidal volume for a for a greater minute ventilation because it with his last pH at 6.96 he had a pCO2 of 80 and we did accomplish reducing pCO2 to 50 but pH remains at at the 6.9 and negative base excess has climbed now to 20 and he was able to post initial resuscitation this morning sustain a 3 hour dialysis and we are awaiting a repeat potassium Review of Systems Review of Systems: Yes Unobtainable due to mental status PMFSH Past Medical History Medical History (Updated 10/13/20 @ 14:13 by Bennie Arevalo MD) A-fib Acute hyperkalemia CAD (coronary artery disease) Calciphylaxis ESRD on dialysis Hypertension Hypoglycemia Social History Social History Household Members: Family Housing: House Do you presently have visiting nurse or other home services: No Unable to assess alcohol history related to: Unknown Alcohol intake: never Patient Tobacco Use Status: Never used Tobacco Smoked in Last 30 Days: No Use of substances other than those prescribed or required for medical reasons: No Substance Use Type: Marijuana Currently Displaying Signs/Symptoms of Drug Intoxication Withdrawal: No Advance Directives: Yes Advance Directives Information Provided: Yes Advance Directives on File: No Advance Directives Date on File: 10/12/20 Do you have thoughts of harming others: None Do you have a plan to hurt others: No Plan Recently lost weight without trying: No Nutrition Risks: No Nutritional Risk Poor oral hygiene: No service: No Meds Allergies Allergy/AdvReac Type Severity Reaction Status Date / Time Alupent Allergy Unknown Unknown Uncoded 09/14/20 06:28 From Alupent Allergy Unknown HALLUCINATI Uncoded 09/14/20 06:28 ONS Active Medications: Current Medications Generic Name Dose Route Start Last Admin Trade Name Freq PRN Reason Stop Dose Admin Dolutegravir Sodium 50 mg 10/13/20 09:00 10/13/20 10:11 Dolutegravir Sodium 50 Mg Tablet PO 50 mg DAILY RADHA Administration Heparin Sodium (Porcine) 5,000 unit 10/12/20 18:49 10/13/20 05:55 Heparin Sodium,Porcine 5,000 Unit/Ml Vial SUBCUT 5,000 unit Q12H RADHA Administration Vancomycin HCl 1,000 mg/ 270 mls @ 270 mls/hr 10/13/20 15:00 Sodium Chloride IV 10/13/20 15:59 ONCE ONE Norepinephrine Bitartrate 8 mg in 250 mls @ 0 mls/hr 10/13/20 08:30 10/13/20 13:45 Levophed IVCONT 0.28 mcg/kg/min .Q0M RADHA 31.5 mls/hr Titration Protocol Per Protocol Epinephrine 5 mg/ Dextrose 255 mls @ 0 mls/hr 10/13/20 08:45 10/13/20 13:44 IVCONT 1.4 mcg/kg/min .Q0M RADHA 257.04 mls/hr Titration Protocol Per Protocol Vancomycin HCl 1,000 mg/ 270 mls @ 270 mls/hr 10/14/20 16:00 Sodium Chloride IV Q24H RADHA Dopamine HCl/Dextrose 400 mg in 250 mls @ 0 mls/hr 10/13/20 14:00 IVCONT .Q0M RADHA Protocol Per Protocol Propofol 1,000 mg in 100 mls @ 0 mls/hr 10/13/20 14:00 Diprivan IVCONT .Q0M [facility] Protocol Per Protocol Lamivudine 100 mg 10/13/20 09:00 10/13/20 10:11 Lamivudine 100 Mg/10 Ml Solution PO 100 mg DAILY RADHA Administration Lidocaine 1 patch 10/12/20 20:20 10/13/20 09:52 Lidocaine 4 % Patch Adh..Patch TRANSDERMA Not Given DAILY [facility] Protocol Pharmacy Consult 1 each 10/12/20 12:56 Consult Rx Perform Med Rec MISCELLANE ONCE PRN Consult order Pharmacy Consult 1 each 10/12/20 15:21 Consult Rx Perform Med Rec MISCELLANE ONCE PRN Consult order Pharmacy Consult 1 each 10/13/20 06:31 Consult Rx Vancomycin Dosing MISCELLANE DAILY PRN Consult order Sodium Chloride 3 ml 10/13/20 00:00 10/13/20 09:49 0.9 % Sodium Chloride Flush 3 Ml Syringe IVFLUSH 3 ml QSHIFT RADHA Administration Home Medications Medication Instructions Recorded Confirmed Last Taken Type hydromorphone 2 - 4 mg PO Q6H PRN MDD 12 MG 03/29/20 10/12/20 Unknown History labetalol 400 mg PO BID 03/29/20 10/12/20 10/11/20 History tramadol 150 mg PO BID PRN 03/29/20 10/12/20 Unknown History dolutegravir [Tivicay] 1 tab PO DAILY 10/12/20 10/12/20 10/11/20 History ferric citrate [Auryxia] 2 tab PO TIDAC 10/12/20 10/12/20 10/12/20 History lamivudine 1 tab PO DAILY 10/12/20 10/12/20 10/11/20 History metoprolol succinate 1 tab PO BID 10/12/20 10/12/20 10/12/20 History omeprazole 1 cap PO DAILY 10/12/20 10/12/20 10/11/20 History Physical Exam Vital Signs: Vital Signs: Last Vital Signs Temp 93.6 F L 10/13/20 13:00 Pulse 110 H 10/13/20 13:45 Resp 27 H 10/13/20 13:00 BP 145/85 H 10/13/20 13:45 Pulse Ox 100 10/13/20 13:00 Body Mass Index 19.5 Currently he is sedated on low-dose propofol and ventilated He is in atrial fibrillation with controlled rate at 1:10 a.m. and a blood pressure of 137/85 on both epinephrine and norepinephrine with the current oxygen saturation of 100% Bedside echo with concentric left ventricular hypertrophy clear-cut mild reduction of systolic reserve ejection fraction initially estimated at close to 50% but marked dilatation of the right ventricle with septal paradox indicating acute on chronic pulmonary hypertension and the CVP measures at 30 initially now down to 27 and I am sure that became acutely elevated when he lost his atrial mechanism Abdomen and initially distended now softer since the OG tube was placed and he was placed on suction which did not remove any significant fluid accumulation but he has marked hepatomegaly We there was wheezing with prolonged expiratory time and what looks like interstitial edema by chest x-ray with cardiomegaly Skin with multiple wounds but no evidence of cellulitis Results Labs CBC & Chem 7: 10/13/20 08:33 10/13/20 13:26 Labs: Short CBC 10/12/20 10/13/20 10/13/20 Range/Units 13:46 05:23 08:33 WBC 13.6 H 13.8 H 16.3 H (4.8-10.8) X10*3/uL Hgb 10.2 L 10.5 L 9.3 L (14.0-18.0) g/dl Hct 31.3 L 34.5 L 32.2 L (42-52) % Plt Count 223 207 212 (160-400) X10*3/uL BMP 10/12/20 10/13/20 10/13/20 13:46 05:23 08:33 Sodium 141 137 143 Potassium 4.8 D 6.2 H* D 5.4 H Chloride 94 L 92 L 88 L Carbon Dioxide 20 L 13 L 17 L BUN 63 H 41 H 42 H Creatinine 4.62 H* 3.21 H 3.26 H Calcium 9.0 9.0 11.3 H D 10/13/20 13:26 Sodium Potassium Chloride Carbon Dioxide BUN 29 H Creatinine 2.67 H Calcium 9.9 D Liver Function 10/12/20 Range/Units 13:46 Total Bilirubin 1.8 H (0.0-1.0) mg/dL Direct Bilirubin 1.5 H (0.0-0.5) mg/dL AST 47 H (5-37) U/L ALT 25 (0-40) U/L Alkaline Phosphatase 501 H D (39-117) U/L Albumin 2.9 L (3.5-5.0) g/dL Assessment and Plan (1) Calciphylaxis: Status: Acute (2) Chest pain: Status: Acute (3) Missed dialysis: Status: Acute (4) Hypertensive urgency: Status: Acute (5) Atrial flutter: Status: Acute (6) End-stage renal disease (ESRD): Status: Acute (7) Interstitial edema: Status: Acute (8) Congestive heart failure with cardiomyopathy: Status: Acute (9) Metabolic acidosis with increased anion gap and accumulation of organic acids: Status: Acute I believe with new onset of atrial fibrillation and given his underlying hypertrophic myopathy with reduced systolic and diastolic reserve but clearly acute on chronic renal cor pulmonale that the loss of his atrial mechanism precipitated the heart failure and he is definitely a got class 4 hemodynamics with reduced systolic and diastolic reserve creating his pulmonary edema and the lactic acidosis reflecting low-flow so right now we depends on onto inotropes epinephrine and Levophed and I will for the pH given 1 more amp of bicarb and I might want a discussing and an attempt at cardioversion because we are in a push comes to shove situation here with him and although less than ideal me if that is possible to restore sinus rhythm it might improve hemodynamics but overall the prognosis is very grave and this was explained to the family and part of the discussion revolved around DNR status
[2020-10-13] MEDS: DOPamine HCL/D5W 400 MG/250 ML PLAST..BAG 11.25 MG IVCONT (14:09)
[2020-10-13 14:24] LABS: Anion Gap 43 (12-20); Carbon Dioxide 9 mmol/L (22-29); Chloride 90 mmol/L (96-108); Potassium 4.9 mmol/L (3.3-5.1); Sodium 137 mmol/L (135-145)
[2020-10-13 14:26] LABS: Lactic Acid 20.2 mmol/L (0.5-2.0)
[2020-10-13] MEDS: vancomycin HCL 1,000 MG in 0.9 % Sodium Chloride 250 ML 270 MG IV (15:17)
[2020-10-13 15:31] LABS: Reflex Lactate? Lactic Acid Added
--- NOTE | 2020-10-13 15:42 | W.PM.IDCN ---
History of Present Illness Data of Consult Service Date: 10/13/20 Requesting physician: Bennie Arevalo Primary Care Provider: Unknown Physician HPI Reason for consult: septic shock He presents to hospital with weakness and atrial fibrillation at hemodialysis. He had rapid response called and came to ICU where he became more alert transiently and then was intubated. He had metabolic acidosis and there was concern over leg wound infection He has had hours of chemical resusciatation and lactic acid of 20. 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 He has been started on lamivudine and dolutegravir He has CD4 of 379. He also has syphilis titer of 1:2,serofast (clinically non-active) Review of Systems Review of Systems: Yes unobtainable due to endotracheal tube PMFSH Past Medical History Medical History (Updated 10/13/20 @ 20:04 by Agueda Terrell PA-C) A-fib Acute hyperkalemia CAD (coronary artery disease) Calciphylaxis ESRD on dialysis Hypertension Hypoglycemia Social History Social History Household Members: Family Housing: House Do you presently have visiting nurse or other home services: No Unable to assess alcohol history related to: Unknown Alcohol intake: never Patient Tobacco Use Status: Never used Tobacco Smoked in Last 30 Days: No Use of substances other than those prescribed or required for medical reasons: No Substance Use Type: Marijuana Currently Displaying Signs/Symptoms of Drug Intoxication Withdrawal: No Advance Directives: Yes (DNR status) Advance Directives Information Provided: Yes Advance Directives on File: No Advance Directives Date on File: 10/12/20 Do you have thoughts of harming others: None Do you have a plan to hurt others: No Plan Recently lost weight without trying: No Nutrition Risks: No Nutritional Risk Poor oral hygiene: No service: No Current occupational status: disabled Meds Allergies Allergy/AdvReac Type Severity Reaction Status Date / Time Alupent Allergy Unknown Unknown Uncoded 09/14/20 06:28 From Alupent Allergy Unknown HALLUCINATI Uncoded 09/14/20 06:28 ONS Active Medications: Current Medications Generic Name Dose Route Start Last Admin Trade Name Freq PRN Reason Stop Dose Admin Dolutegravir Sodium 50 mg 10/13/20 09:00 10/13/20 10:11 Dolutegravir Sodium 50 Mg Tablet PO 50 mg DAILY RADHA Administration Heparin Sodium (Porcine) 5,000 unit 10/12/20 18:49 10/13/20 05:55 Heparin Sodium,Porcine 5,000 Unit/Ml Vial SUBCUT 5,000 unit Q12H RADHA Administration Vancomycin HCl 1,000 mg/ 270 mls @ 270 mls/hr 10/13/20 15:00 10/13/20 15:17 Sodium Chloride IV 10/13/20 15:59 270 mls/hr ONCE ONE Administration Norepinephrine Bitartrate 8 mg in 250 mls @ 0 mls/hr 10/13/20 08:30 10/13/20 15:30 Levophed IVCONT 0.2 mcg/kg/min .Q0M RADHA 22.5 mls/hr Titration Protocol Per Protocol Epinephrine 5 mg/ Dextrose 255 mls @ 0 mls/hr 10/13/20 08:45 10/13/20 14:05 IVCONT Infused .Q0M RADHA Titration Protocol Per Protocol Vancomycin HCl 1,000 mg/ 270 mls @ 270 mls/hr 10/14/20 16:00 Sodium Chloride IV Q24H RADHA Dopamine HCl/Dextrose 400 mg in 250 mls @ 0 mls/hr 10/13/20 14:00 10/13/20 15:30 IVCONT 5 mcg/kg/min .Q0M RADHA 11.25 mls/hr Titration Protocol Per Protocol Propofol 1,000 mg in 100 mls @ 0 mls/hr 10/13/20 14:00 10/13/20 15:07 Diprivan IVCONT 30 mcg/kg/min .Q0M RADHA 10.8 mls/hr Titration Protocol Per Protocol Lamivudine 100 mg 10/13/20 09:00 10/13/20 10:11 Lamivudine 100 Mg/10 Ml Solution PO 100 mg DAILY RADHA Administration Lidocaine 1 patch 10/12/20 20:20 10/13/20 09:52 Lidocaine 4 % Patch Adh..Patch TRANSDERMA Not Given DAILY RADHA Protocol Pharmacy Consult 1 each 10/12/20 12:56 Consult Rx Perform Med Rec MISCELLANE ONCE PRN Consult order Pharmacy Consult 1 each 10/12/20 15:21 Consult Rx Perform Med Rec MISCELLANE ONCE PRN Consult order Pharmacy Consult 1 each 10/13/20 06:31 Consult Rx Vancomycin Dosing MISCELLANE DAILY PRN Consult order Sodium Chloride 3 ml 10/13/20 00:00 10/13/20 15:18 0.9 % Sodium Chloride Flush 3 Ml Syringe IVFLUSH 3 ml [facility] Administration Home Medications Medication Instructions Recorded Confirmed Last Taken Type hydromorphone 2 - 4 mg PO Q6H PRN MDD 12 MG 03/29/20 10/12/20 Unknown History labetalol 400 mg PO BID 03/29/20 10/12/20 10/11/20 History tramadol 150 mg PO BID PRN 03/29/20 10/12/20 Unknown History dolutegravir [Tivicay] 1 tab PO DAILY 10/12/20 10/12/20 10/11/20 History ferric citrate [Auryxia] 2 tab PO TIDAC 10/12/20 10/12/20 10/12/20 History lamivudine 1 tab PO DAILY 10/12/20 10/12/20 10/11/20 History metoprolol succinate 1 tab PO BID 10/12/20 10/12/20 10/12/20 History omeprazole 1 cap PO DAILY 10/12/20 10/12/20 10/11/20 History Physical Exam Vital Signs: Vital Signs: Last Vital Signs Temp 95.9 F L 10/13/20 15:00 Pulse 120 H 10/13/20 15:16 Resp 33 H 10/13/20 15:00 BP 110/67 10/13/20 15:11 Pulse Ox 98 10/13/20 15:00 Body Mass Index 19.5 Const: General: ill appearing HENMT: Head: Yes normal to inspection Mouth: Normal oral and palatal mucosa present Resp: Effort & Inspection: symmetric chest movement Cardio: Rate: regular rate Rhythm: regular rhythm GI: Auscultation: normal bowel sounds Skin: General skin exam: no rashes or lesions noted Neuro: Other: difficult to assess Extrem: Other: eschars bilaterally on legs,legs thin, no cellulitis Results Labs CBC & Chem 7: 10/13/20 08:33 10/13/20 13:26 Labs: Short CBC 10/13/20 10/13/20 Range/Units 05:23 08:33 WBC 13.8 H 16.3 H (4.8-10.8) X10*3/uL Hgb 10.5 L 9.3 L (14.0-18.0) g/dl Hct 34.5 L 32.2 L (42-52) % Plt Count 207 212 (160-400) X10*3/uL BMP 10/13/20 10/13/20 10/13/20 05:23 08:33 13:26 Sodium 137 143 137 Potassium 6.2 H* D 5.4 H 4.9 Chloride 92 L 88 L 90 L Carbon Dioxide 13 L 17 L 9 L* D BUN 41 H 42 H 29 H Creatinine 3.21 H 3.26 H 2.67 H Calcium 9.0 11.3 H D 9.9 D Assessment and Plan (1) Metabolic acidosis with increased anion gap and accumulation of organic acids: Status: Acute There is concern over septic shock from areas skin breakdown including staph and strep Also, patient is on full HIV medication ,concern over lactic acidosis as mitochondrial toxicity caused by NRTI(lamivudine) Would give IV Vancomycin and Doxycycline cover tick borne,bartonella in immunocompromised host Continue Vancomycin ? contaminant blood culture Stop lamivudine and dolutegravir ?lactic acidosis and restart if staph aureus found (not contaminant in blood) Follow LFTs Prognosis guarded
[2020-10-13] MEDS: Amiodarone/Dextrose 150 MG/100 ML PLAST..BAG 600 MG IV (16:00)
--- NOTE | 2020-10-13 16:06 | MHC.CM.PN ---
IMM 10/13/20 DX AFIB/RVR Pt lives with Family. He is intubated in ICU. He had many family visitors. T/W did not approach for CM assessment. CM will follow.
[2020-10-13] MEDS: Atropine Sulfate 1 MG/10 ML SYRINGE IVPUSH (16:13)
[2020-10-13 16:17] LABS: VBG Base Excess -16.7 mmol/L; VBG HCO3 11 mmol/L (22-26); VBG pCO2 33 mmHg; VBG pH 7.12 (7.32-7.43); VBG pO2 53 mmHg
[2020-10-13] MEDS: EPINEPHrine 1 MG/10 ML SYRINGE 0.5 MG IVPUSH (16:22)
[2020-10-13] MEDS: Midazolam HCl/PF 2 MG/2 ML VIAL IVPUSH (16:40)
[2020-10-13 16:55] LABS: Glucose, Whole Blood < 10 mg/dL (60-115)
[2020-10-13 16:55] LABS: Glucose, Whole Blood 39 mg/dL (60-115)
[2020-10-13 17:07] LABS: ~Lactic Acid-LAB USE ONLY 19.4 mmol/L (0.5-2.0)
[2020-10-13 17:14] LABS: Glucose, Whole Blood 164 mg/dL (60-115)
[2020-10-13 18:16] LABS: Reflex Lactate? 2 Y
[2020-10-13 18:30] LABS: VBG Base Excess -19.7 mmol/L; VBG HCO3 11 mmol/L (22-26); VBG pCO2 48 mmHg; VBG pH 6.97 (7.32-7.43); VBG pO2 55 mmHg
[2020-10-13 18:54] LABS: Venous Blood Gas Refer to POC result
[2020-10-13 18:55] LABS: Venous Blood Gas Refer to POC result
[2020-10-13 18:56] LABS: Venous Blood Gas Refer to POC result
--- NOTE | 2020-10-13 19:56 | P.DN_ITS ---
Discharge Sum: Prov Provider Primary care physician: Unknown Physician Admitting clinician: Yomaira Brown Consults: 10/12/20 17:29 Consult to Nephrology Routine Consulting Provider: Jax Osuna Reason for consultation: esrd Has provider been notified: No 10/13/20 03:29 Consult to General Surgery Routine Consulting Provider: Dangelo Ward Reason for consultation: leg wounds with eschar Consult to Infectious Diseases Routine Consulting Provider: Griselda Reilly Reason for consultation: leg wounds with echar Pronouncing clinician: Agueda Terrell Discharge Sum: Diag PCOD Cause of : Bradycardic cardiac arrest Contributing Factors (1) Metabolic acidosis with increased anion gap and accumulation of organic acids: (2) Congestive heart failure with cardiomyopathy: (3) Missed dialysis: (4) Left against medical advice: (5) Atrial flutter: (6) Interstitial edema: (7) ESRD on dialysis: (8) Cardiopulmonary arrest with successful resuscitation: Discharge Sum: Summary Date and Time Date of admission: 10/12/20 17:29 Date of : 10/13/20 Time of : 19:21 Additional Data Confirmation of as documented by pronouncing clinician: no pulse, no respirations, no heart sounds and pupils fixed and dilated Family: contacted Attending/PCP notified?: Yes Attending physician: Dr Bennie Leyva Was code activated?: No Autopsy requested?: No passport application examiner notified?: No Organ bank notified?: No Advance directives: Yes (DNR status) Hospice patient?: No
--- NOTE | 2020-10-13 19:57 | PC.NURSE ---
Pt coded this morning change of shift. ROSC obtained. See chart for medication details. Post code pt has received x4 amps bicarb, 200mg calcium gluconate. Central line was placed Left IJ, OG tube placed, intubated with #7.5 ET tube 23 lip. Levophed started maxed out 0.3mcg/kg/min, epi drip started, maxed, switched over to dopamine drip. Propofol at 0-20mcg/kg/min throughout the day. x3 AMP 25g d50% given for blood sugar too low to read up to 160mg/dL. Received dialysis +700ml. Family in to visit. MOLST form filled out this afternoon. Bed locked and in lowest position. Call yu in reach.
[2020-10-13 20:45] LABS: ~Lactic Acid-LAB USE ONLY 27.5 mmol/L (0.5-2.0)
[2020-10-16 08:58] LABS: Glucose, Whole Blood < 10 mg/dL (60-115)
[2020-10-16 08:58] LABS: Glucose, Whole Blood 53 mg/dL (60-115)
--- NOTE | 2020-10-26 12:37 | MHC.CDI.RETR ---
Retrospective Query Please clarify if you have treated a probable/suspected/likely or confirmed: Acute Systolic CHF Acute Diastolic CHF Acute Systolic and Diastolic CHF PLEASE DO NOT DELETE/MODIFY EXISTING CONTENT Additional information is needed in order to code to the highest accuracy and appropriate Severity of Illness (SOI). Please clarify the information noted below in your progress notes and discharge summary. Risk Factors/Clinical Indicators/Treatments 44 year old male as per ED impression: Atrial Flutter, ESRD, Interstitial edema BNP 2266 Troponin 80.6 Per MD note 10/13/20, bedside ECHO with concentric left ventricular hypertrophy clear-cut mild reduction of systolic reserve ejection fraction initially estimated at close to 50% but marked dilatation of the right ventricle CDS: Disha Farah RN Contact Number: [phone] Please Review the information above and exercise your independent professional judgment in responding to the query. If you concur, pleas document in the PROGRESS NOTES and DISCHARGE SUMMARY. If you do not agree with the query, please document in the query above. THIS QUERY IS PART OF THE PERMANENT MEDICAL RECORD
--- NOTE | 2020-11-15 14:31 | MHC.CDI.RETR ---
Documented by User: Disha Farah RN 11/15/20 14:34 Retrospective Query Please clarify if you have treated a probable/suspected/likely or confirmed: HIV Disease Asymptomatic HIV AIDS PLEASE DO NOT DELETE/MODIFY EXISTING CONTENT Additional information is needed in order to code to the highest accuracy and appropriate Severity of Illness (SOI). Please clarify the information noted below in your progress notes and discharge summary. Risk Factors/Clinical Indicators/Treatments Per ID note 10/13/20, on HIV medication full treatment HIV care at [facility] [id number] CDS: Disha Farah RN Contact Number: [phone] Please Review the information above and exercise your independent professional judgment in responding to the query. If you concur, pleas document in the PROGRESS NOTES and DISCHARGE SUMMARY. If you do not agree with the query, please document in the query above. THIS QUERY IS PART OF THE PERMANENT MEDICAL RECORD Documented by User: Jaime Hassan MD 11/15/20 15:05 Retrospective Query Provider Response: Other ( HIV disease without AIDS)
== END 2020-10-13 19:21 | disposition expired | DRG 291 ==
LOC: HO.ED 17:37 → HO.IMC 17:47 → HO.ICU 10-13 07:29
PROVIDERS: Hospitalist; Internal Medicine Cardiovascular Disease; Physician Assistant; Admitting Provider Physician Assistant Medical; Emergency Provider Emergency Medicine; Visit Provider Hospitalist
DX: I13.2 Hypertensive heart and chronic kidney disease with heart failure and with stage 5 chronic kidney disease, or end stage renal disease (principal); N18.6 End stage renal disease; I50.23 Acute on chronic systolic (congestive) heart failure; E87.2 Acidosis; I48.91 Unspecified atrial fibrillation; I42.9 Cardiomyopathy, unspecified; I25.10 Atherosclerotic heart disease of native coronary artery without angina pectoris; E83.59 Other disorders of calcium metabolism; G25.81 Restless legs syndrome; E16.2 Hypoglycemia, unspecified; Z21 Asymptomatic human immunodeficiency virus [HIV] infection status; I46.9 Cardiac arrest, cause unspecified; D63.1 Anemia in chronic kidney disease; Z99.2 Dependence on renal dialysis; Z20.822 Contact with and (suspected) exposure to COVID-19; Z79.891 Long term (current) use of opiate analgesic; Z79.899 Other long term (current) drug therapy
CPT/HCPCS: 36415; 36600; 71045; 80048; 80076; 82140; 82947; 83605; 83690; 83735; 83880; 84484; 85007; 85025; 85027; 85610; 85730; 87040; 87077; 87186; 87205; 87635; 90999; 93005; 94002; 94003; 94660; 94799; 96374; 96375; 99285; J0171; J0282; J0461; J1170; J1265; J2250; J2543; J3370